=== PATIENT | female | born 1950 | race Caucasian/White ===

== ENCOUNTER 2019-05-24 07:00 | Emergency (ER) | payer OTHER, SELFPAY ==
[2019-05-24 07:02] VITALS: BP 151/86; PULSE 90; RESP 12; TEMP 36.6; O2SAT 96; BMI 30.5
--- NOTE | 2019-05-24 07:21 | DI.RAD.S_ITS ---
PROCEDURE: XR CHEST 1V INDICATIONS: chest pain TECHNIQUE: One view of the chest was acquired. COMPARISON: None. FINDINGS: Surgical changes and devices: None. Lungs and pleura: Lungs are clear. No pleural effusions or pneumothorax. Mediastinum: Mediastinal contours appear normal. Heart size is mildly prominent. Bones and chest wall: No suspicious bony lesions. Overlying soft tissues appear unremarkable. IMPRESSION: No acute pulmonary process. Dictated by: Elizabet Bales M.D. on 05/24/2019 at 8:00 Approved by: Elizabet Bales M.D. on 05/24/2019 at 8:25
--- NOTE | 2019-05-24 07:24 | ED_ITS ---
HPI - Arrhythmia/Palpitations General Chief Complaint: Arrhythmia/Palpitations Stated Complaint: HEART BEATING FAST Time Seen by Provider: 05/24/19 07:08 Source: patient Mode of arrival: Ambulatory Limitations: no limitations History of Present Illness HPI narrative: Patient is a 69-year-old female who presents with heart palpitations. She states she woke up feeling her heart beating fast and irregular. She tried bearing down to make it go away it lasted for maybe an hour she currently is in normal sinus rhythm in the emergency department. She is overall feeling better. She denies any chest pain dizziness or lightheadedness. She has no shortness of breath MD complaint: rapid heart beat and heart racing Duration: now resolved Severity: mild Context: occurred during rest Related Data Home Medications Medication Instructions Recorded Confirmed atenolol 25 mg tablet 25 mg PO DAILY 03/12/19 03/12/19 Previous Rx's Medication Instructions Recorded lamotrigine 200 mg tablet 200 mg PO DAILY #90 tab 03/12/19 trazodone 100 mg tablet 100 mg PO DAILY #90 tab 04/04/19 levothyroxine 75 mcg tablet 75 mcg PO DAILY #90 tab 05/09/19 venlafaxine 75 mg capsule,extended 75 mg PO TID #180 cap 05/09/19 release 24 hr Allergies Allergy/AdvReac Type Severity Reaction Status Date / Time duloxetine [From CYMBALTA] Allergy Unknown Verified 03/12/19 16:09 Review of Systems Review of Systems Narrative: GENERAL: Denies chills, fatigue, malaise, fever, sweats, travel HEENT: Denies sinus pain, ear pain, sore throat, difficulty swallowing, neck pain RESPIRATORY: Denies dyspnea, cough, wheezing, hemoptysis, sputum. CARDIOVASCULAR: See HPI GASTROINTESTINAL: Denies nausea, vomiting, abdominal pain, diarrhea, constipation, melena. : Denies dysuria, frequency, incontinence, hematuria, urinary retention, flank pain. MUSCULOSKELETAL: Denies weakness, joint pain, or bony pain SKIN: No rash, no erythema, no pruritus NEUROLOGIC: Denies weakness, dizziness, headache, numbness, change in speech, confusion PSYCHIATRIC: No concerning psychosocial issues. 12 point review of systems is negative except for those stated above and HPI Patient History Medical History Allergies (Chronic) Ankle pain (Chronic ~2017) Anxiety (Chronic) Arthritis (Chronic ~2007) Cervical spine disease (Chronic) Chicken pox (Resolved) Chronic back pain (Chronic ~1963) Depression (Chronic) Fibromyalgia (Chronic) Foot pain (Chronic) History of recurrent ear infection (Resolved) Hypertension (Chronic ~2018) Hypothyroidism (Chronic ~2000) Lumbar disc disease (Chronic) Measles (Resolved) Mumps (Resolved) Osteopenia (Chronic) Psoriasis (Chronic ~1979) Shoulder pain (Chronic) Skin problem (Chronic ~2017) Sleep apnea (Chronic) Vision disorder (Chronic) Surgical History Anesthesia (Resolved) History of breast surgery (Resolved ~1974) Family History Father History of heart disease Hypertension Mother Cancer History of heart disease Mental health problem Brother Atrial fibrillation Grandfather Stroke Social History Smoking Status: Former smoker Tobacco: How many years used: 15 alcohol intake: current (Occasional) alcohol intake frequency: holidays/special occasions only Substance Use Type: does not use Exam Initial Vital Signs Initial Vital Signs: Vital Signs Temperature 97.8 F 05/24/19 07:02 Pulse Rate 90 05/24/19 07:02 Respiratory Rate 12 05/24/19 07:02 Blood Pressure 151/86 H 05/24/19 07:02 Pulse Oximetry 96 05/24/19 07:02 GENERAL: Well-appearing, well-nourished and in no acute distress. HEENT: Head atraumatic,EOMI, pupils reactive, face symmetric, moist mucous membr anes CARDIOVASCULAR: Regular rate and rhythm without murmurs, rubs or gallops. RESPIRATORY: Breath sounds equal bilaterally, no wheezes rales or rhonchi. ABDOMEN: Soft, nontender. Normoactive bowel sounds all 4 quadrants. No guarding or rebound. EXTREMITIES: Normal range of motion, no clubbing or edema. Neurovascularly intact NEUROLOGICAL: Alert and oriented x4.Normal gait and speech. Cranial nerves II through XII grossly intact. SKIN: Warm, dry, no laceration, no petechiae, no rashes or lesions. Course Orders Ordered: ED Orders 05/24/19 EKG-12 Lead Routine 05/24/19 07:09 Complete Blood Count AUTO DIFF Stat Comprehensive Metabolic Panel Stat Lipase Stat Partial Thromboplastin Time Stat Prothrombin Time INR Stat Troponin & CK Cardiac Panel Stat 05/24/19 07:21 XR chest 1V Stat Vital Signs Vital signs: Vital Signs - 8 hr 05/24/19 07:02 05/24/19 07:50 05/24/19 08:18 Temperature 97.8 F Pulse Rate 90 77 76 Respiratory Rate 12 18 12 Blood Pressure 151/86 H 101/64 Blood Pressure [Right Arm] 110/71 Pulse Oximetry 96 94 96 MDM - Arrhythmia/Palpitations Lab Data Attestation: I reviewed the patient's lab results. Result diagrams: 05/24/19 07:09 05/24/19 07:09 Labs: Lab Results 05/24/19 05/24/19 05/24/19 Range/Units 07:09 07:09 07:09 WBC 7.8 (4.5-11.0) X10^3/uL RBC 4.88 (4.0-5.2) X10^6/uL Hgb 15.5 (12.0-16.0) g/dL Hct 46.1 H (36-46) % MCV 94.4 (80-100) fL MCH 31.8 (26-34) PG MCHC 33.7 (30-36) % RDW 13.0 (11.6-14.8) % Plt Count 384 (150-400) X10^3/uL Neut % (Auto) 50.6 (50-75) % Lymph % (Auto) 35.5 (25-40) % Webster % (Auto) 9.9 (3-14) % Eos % (Auto) 3.3 (2-4) % Baso % (Auto) 0.7 (0-2) % Neut # (Auto) 3900 (1610-1774) /uL Lymph # (Auto) 2800 (3252-6722) /uL Webster # (Auto) 800 (0-900) /uL Eos # (Auto) 300 (0-450) /uL Baso # (Auto) 100 (0-100) /uL PT 9.6 L (10.1-12.7) SECONDS INR 0.8 L (0.9-1.3) APTT 33 (26.4-36.2) SECONDS Sodium 139 (137-145) mmol/L Potassium 4.3 (3.4-5.1) mmol/L Chloride 106 (98-107) mmol/L Carbon Dioxide 24 (22-32) mmol/L BUN 17 (7-17) mg/dL Creatinine 0.60 (0.52-1.04) mg/dL Estimated GFR > 60.0 (>60) mL/min BUN/Creatinine Ratio 28.3 H (6-22) Glucose 115 H (80-110) mg/dL Calcium 9.6 (8.4-10.2) mg/dL Total Bilirubin 0.4 (0.2-1.3) mg/dL AST 25 (14-36) IU/L ALT 21 (<35) IU/L Alkaline Phosphatase 112 (38-126) U/L Total Creatine Kinase 57 (30-135) U/L CK-MB (CK-2) TNP CK-MB (CK-2) Rel Index TNP Troponin I 0.020 (0.01-0.034) ng/mL Total Protein 7.6 (6.3-8.2) g/dL Albumin 4.6 (3.5-5.0) g/dL Globulin 3.0 (1.7-4.1) g/dL Albumin/Globulin Ratio 1.5 (1.0-2.8) Lipase 205 (23-300) U/L Imaging Data Chest x-ray: Radiologist's impression: PROCEDURE: XR CHEST 1V INDICATIONS: chest pain TECHNIQUE: One view of the chest was acquired. COMPARISON: None. FINDINGS: Surgical changes and devices: None. Lungs and pleura: Lungs are clear. No pleural effusions or pneumothorax. Mediastinum: Mediastinal contours appear normal. Heart size is mildly prominent. Bones and chest wall: No suspicious bony lesions. Overlying soft tissues appear unremarkable. IMPRESSION: No acute pulmonary process. Dictated by: Elizabet Bales M.D. on 05/24/2019 at 8:00 Approved by: Elizabet Bales M.D. on 05/24/2019 at 8:25 ECG Data Attestation: I personally reviewed and interpreted this ECG as follows: Prior ECG tracings: available for review Interpretation: Normal sinus rhythm rate 87 p.r. interval 162 QRS [address] elevations depressions is T-wave inversions similar to previous EKG in 2016 [facility] Narrative Medical decision making narrative: The patient overall feeling much better Discharge Plan Departure Patient Disposition: Home Clinical Impression: Palpitations Discharge Date/Time: 05/24/19 08:18 Instructions: DI for Palpitations Activity Restrictions/Additional Instructions: *You have been diagnosed with heart palpitations *What to do: The I recommend you speak with her PCP in regards to getting a Holter monitor. This can monitor your heart rate in order to help figure out what is causing your palpitations *Continue to take medications as directed *Follow up with your primary care provider in 2-3 days *Return to ER if you should have increasing heart palpitations, dizziness, lightheadedness, chest pain, passing or any new, worsening or concerning symptoms Prescriptions: No Action trazodone 100 mg tablet 100 mg PO DAILY Qty: 90 RF: 1 levothyroxine [Synthroid] 75 mcg tablet 75 mcg PO DAILY Qty: 90 RF: 1 venlafaxine [Effexor XR] 75 mg capsule,extended release 24hr 75 mg PO TID Qty: 180 RF: 1 atenolol 25 mg tablet 25 mg PO DAILY RF: 0 lamotrigine 200 mg tablet 200 mg PO DAILY Qty: 90 RF: 1 Referrals: Connie Douglass DO [Primary Care Provider] -
[2019-05-24 07:28] LABS: Add Manual Diff / Slide Review NO; Basophils Absolute Auto 100 /uL (0-100); Basophils Percent Auto 0.7 % (0-2); Eosinophils Absolute Auto 300 /uL (0-450); Eosinophils Percent Auto 3.3 % (2-4); Hematocrit 46.1 % (36-46); Hemoglobin 15.5 g/dL (12.0-16.0); Lymphocytes Absolute Auto 2800 /uL (1100-4500); Lymphocytes Percent Auto 35.5 % (25-40); Mean Corpuscular HGB Conc 33.7 % (30-36); Mean Corpuscular Hemoglobin 31.8 PG (26-34); Mean Corpuscular Volume 94.4 fL (80-100); Monocytes Absolute Auto 800 /uL (0-900); Monocytes Percent Auto 9.9 % (3-14); Neutrophils Absolute Auto 3900 /uL (1500-7000); Neutrophils Percent Auto 50.6 % (50-75); Platelet Count 384 X10^3/uL (150-400); Red Blood Cell Count 4.88 X10^6/uL (4.0-5.2); White Blood Cell Count 7.8 X10^3/uL (4.5-11.0)
[2019-05-24 07:34] LABS: INR 0.8 (0.9-1.3); Prothrombin Time 9.6 SECONDS (10.1-12.7)
[2019-05-24 07:36] LABS: PTT Partial Thromboplastin Tim 33 SECONDS (26.4-36.2)
[2019-05-24 07:40] LABS: Alanine Aminotransferase 21 IU/L (<35); Albumin 4.6 g/dL (3.5-5.0); Albumin Globulin Ratio 1.5 (1.0-2.8); Alkaline Phosphatase 112 U/L (38-126); Aspartate Aminotransferase 25 IU/L (14-36); BUN Creatinine Ratio 28.3 (6-22); Bilirubin Total 0.4 mg/dL (0.2-1.3); Blood Urea Nitrogen 17 mg/dL (7-17); Calcium 9.6 mg/dL (8.4-10.2); Carbon Dioxide 24 mmol/L (22-32); Chloride 106 mmol/L (98-107); Creatine Kinase 57 U/L (30-135); Estimated Glomerular Filt Rate > 60.0 mL/min (>60); Glucose 115 mg/dL (80-110); HEMOLYSIS 17 (0-50); Lipase 205 U/L (23-300); Potassium 4.3 mmol/L (3.4-5.1); Sodium 139 mmol/L (137-145); Total Protein 7.6 g/dL (6.3-8.2)
[2019-05-24 07:50] VITALS: BP 110/71; PULSE 77; RESP 18; O2SAT 94
[2019-05-24 08:18] VITALS: BP 101/64; PULSE 76; RESP 12; O2SAT 96
== END 2019-05-24 08:18 | disposition home or self-care (01) ==
PROVIDERS: Emergency Provider Emergency Medicine; Family Provider Registered Nurse; PCP Family Medicine
DX: R00.2 Palpitations (principal); R07.9 Chest pain, unspecified; R00.0 Tachycardia, unspecified; I10 Essential (primary) hypertension
CPT/HCPCS: 36415; 71045; 80053; 82550; 83690; 84484; 85025; 85610; 85730; 93005; 93010; 99283; 99285

== ENCOUNTER → 2019-05-31 09:55 | Outpatient (CLI) | payer OTHER, SELFPAY ==
[2019-05-31 11:35] LABS: Hematocrit 44.3 % (36-46); Hemoglobin 14.9 g/dL (12.0-16.0); Mean Corpuscular HGB Conc 33.5 % (30-36); Mean Corpuscular Hemoglobin 31.7 PG (26-34); Mean Corpuscular Volume 94.4 fL (80-100); Platelet Count 400 X10^3/uL (150-400); Red Cell Distribution Width 12.8 % (11.6-14.8); White Blood Cell Count 5.8 X10^3/uL (4.5-11.0)
[2019-05-31 12:33] LABS: Neutrophils Absolute Manual 2610 /uL (3000-5900); RBC Morphology Normal Morphology; Total Cells Counted 100
[2019-05-31 12:48] LABS: Appearance Urine UA CLEAR; Bilirubin Urine UA NEGATIVE (NEGATIVE); Color Urine UA YELLOW; Glucose Urine UA NEGATIVE (Negative); Ketones Urine UA NEGATIVE (NEGATIVE); Leukocyte Esterase Urine UA NEGATIVE (NEGATIVE); Nitrite Urine UA NEGATIVE (Negative); Occult Blood Urine UA NEGATIVE (Negative); Protein Urine UA NEGATIVE (Negative); Specific Gravity Urine UA 1.015 (1.000-1.035); Urobilinogen Urine UA 0.2 E.U./dL (0.2)
[2019-05-31 12:50] LABS: Cholesterol 257 mg/dL (140-199); HDL Cholesterol 50 mg/dL (40-60); LDL Cholesterol Calculated 183 mg/dL (<100); Triglycerides 121 mg/dL (35-150)
[2019-05-31 13:02] LABS: Free T3, Triiodothyronine Free 3.74 pg/mL (2.77-5.27); Free T4, Direct Thyroxine 1.11 ng/dL (0.78-2.19)
[2019-05-31 13:16] LABS: Thyroid Stimulating Hormone 2.25 uIU/mL (0.47-4.68)
[2019-06-04 09:53] LABS: Lamotrigine Lamictal 2.9 mcg/mL (4.0-18.0)
== END ==
PROVIDERS: Family Provider Registered Nurse; PCP Family Medicine; Visit Provider Family Medicine
DX: F32.9 Major depressive disorder, single episode, unspecified (principal); G47.00 Insomnia, unspecified; I10 Essential (primary) hypertension; Z79.899 Other long term (current) drug therapy
CPT/HCPCS: 36415; 80061; 80175; 81003; 84439; 84443; 84481; 85025

== ENCOUNTER 2019-08-15 20:47 | Emergency (ER) | payer OTHER, SELFPAY ==
[2019-08-15 20:54] VITALS: BP 125/71; PULSE 77; RESP 16; TEMP 36.9; O2SAT 97
--- NOTE | 2019-08-15 20:59 | DI.RAD.S_ITS ---
PROCEDURE: XR WRIST RT MIN 3V INDICATIONS: fall TECHNIQUE: 4 views of the wrist were acquired. COMPARISON: None. FINDINGS: Bones: Subtle step-off at the distal radial metaphysis with increased transverse density is suspicious for impacted distal radius fracture. No suspicious bony lesions. Moderate to severe degenerative change most pronounced at the first CMC joint. Scaphoid view: Unremarkable. Soft tissues: No suspicious soft tissue calcifications. IMPRESSION: Suspect impacted distal radius fracture. Dictated by: Adi Pardo M.D. on 08/15/2019 at 21:58 Approved by: Adi Pardo M.D. on 08/15/2019 at 22:00
--- NOTE | 2019-08-15 21:26 | DI.CT.S_ITS ---
PROCEDURE: CT HEAD/BRAIN WO CON INDICATIONS: head injury TECHNIQUE: Noncontrast 4.5 mm thick angled axial sections acquired from the foramen magnum to the vertex, with coronal and sagittal reformats. For radiation dose reduction, the following was used: automated exposure control, adjustment of mA and/or kV according to patient size. COMPARISON: None. FINDINGS: Image quality: Excellent. CSF spaces: Basal cisterns are patent. No extra-axial fluid collections. The ventricles are symmetric in size and shape. Brain: No intracranial bleeds or masses. There is moderate cerebral volume loss for age, with resultant ventricular and sulcal prominence. There are moderate periventricular and deep white matter chronic small vessel ischemic changes. There is intracranial internal carotid artery atherosclerosis. Skull and face: Calvarium and visualized facial bones appear intact, without suspicious lesions. Asymmetric prominence of the left face adjacent to the left parotid gland likely related to asymmetric positioning within the scanner gantry. The right face adjacent to the parotid gland region is not symmetrically imaged on this examination. Recommend correlation for symmetry on physical examination. Sinuses: Likely small mucous retention cyst in the posterior aspect of the right maxillary sinus. Remainder of the paranasal sinuses appear clear. Mastoid air cells are well-aerated. IMPRESSION: CT head without acute intracranial abnormalities. No acute calvarial fractures. Age-related senescent changes and sequela of chronic small vessel ischemic disease. Likely small posterior right maxillary sinus mucus retention cyst. Dictated by: Hever Calvo M.D. on 08/15/2019 at 22:02 Approved by: Hever Calvo M.D. on 08/15/2019 at 22:06
[2019-08-15 21:52] VITALS: BP 127/61; PULSE 76; RESP 19; O2SAT 96
--- NOTE | 2019-08-15 22:23 | DI.CT.S_ITS ---
PROCEDURE: CT CERVICAL SPINE WO CON INDICATIONS: no neck pain, fall, hit head, +etoh TECHNIQUE: Noncontrast 3 mm thick sections acquired from the skull base to the T4 level. Sagittal and coronal reformats were then constructed. For radiation dose reduction, the following was used: automated exposure control, adjustment of mA and/or kV according to patient size. COMPARISON: [facility], CT, CT HEAD/BRAIN WO CON, 08/15/2019, 21:30. FINDINGS: Image quality: Excellent. Bones: No fractures or dislocations. Visualized superior ribs are intact. Trace anterolithesis of C3 on C4. Moderate disc space narrowing at C5-6, C6-7. Reversal of cervical curvature. Soft tissues: Prevertebral soft tissues are normal in thickness. No paravertebral hematomas. No apical pneumothoraces. IMPRESSION: Degenerative changes without visualized fracture. The above findings are concordant with preliminary report. Dictated by: Elizabet Bales M.D. on 08/16/2019 at 10:54 Approved by: Elizabet Bales M.D. on 08/16/2019 at 10:56
--- NOTE | 2019-08-15 22:30 | PC.NURSE ---
Cervical collar applied per Provider.
[2019-08-15 22:47] VITALS: BP 109/53; PULSE 78; RESP 16; O2SAT 98
--- NOTE | 2019-08-15 23:22 | ED.HEATRA ---
HPI - Head Injury General Chief complaint: Head Injury Stated complaint: fall, head injury, confused Time Seen by Provider: 08/15/19 23:22 Source: patient and family Mode of arrival: Wheelchair Limitations: no limitations History of Present Illness HPI Narrative: This is a 69-year-old female who comes to the emergency department gait of fall and head injury as well as right wrist pain. Patient states that she had some vodka earlier today and had some drinks. She states that she had her granddaughter come over to give her a box she went up stairs to get had a fall and then return her granddaughter who noted that she had a abrasion on her forehead or bruise and she had right wrist pain. Patient does not have any headache at this time. Denies any neck or back pain. She does have pain in her right wrist. She was ambulating in the emergency department. Patient states that she takes medication for mood and hypothyroid. Patient states she had a lump removed in her from her left breast that was benign and denies other surgeries. She states she is allergic to duloxetine or Cymbalta. She quit smoking in 40s, she states that she quit drinking for several years visited her brother recently had some RT knees and when she came back home bought a bottle of vodka. Patient states that she does not use illicit she lives on [facility] on her own. Related Data Home Medications Medication Instructions Recorded Confirmed atenolol 25 mg tablet 25 mg PO DAILY 03/12/19 06/19/19 Previous Rx's Medication Instructions Recorded lamotrigine 200 mg tablet 200 mg PO DAILY #90 tab 03/12/19 trazodone 100 mg tablet 100 mg PO DAILY #90 tab 04/04/19 levothyroxine 75 mcg tablet 75 mcg PO DAILY #90 tab 05/09/19 venlafaxine 75 mg capsule,extended 75 mg PO TID #180 cap 05/09/19 release 24 hr Allergies Allergy/AdvReac Type Severity Reaction Status Date / Time duloxetine [From CYMBALTA] AdvReac Unknown Anxiety Verified 08/15/19 20:57 Review of Systems Review of Systems ROS Unobtainable: All systems reviewed & are unremarkable except as noted in HPI and below Patient History Medical History Allergies (Chronic) Ankle pain (Chronic ~2017) Anxiety (Chronic) Arthritis (Chronic ~2007) Cervical spine disease (Chronic) Chicken pox (Resolved) Chronic back pain (Chronic ~1963) Depression (Chronic) Fibromyalgia (Chronic) Foot pain (Chronic) History of recurrent ear infection (Resolved) Hypertension (Chronic ~2018) Hypothyroidism (Chronic ~2000) Lumbar disc disease (Chronic) Measles (Resolved) Mumps (Resolved) Osteopenia (Chronic) Psoriasis (Chronic ~1979) Shoulder pain (Chronic) Skin problem (Chronic ~2017) Sleep apnea (Chronic) Vision disorder (Chronic) Surgical History Anesthesia (Resolved) History of breast surgery (Resolved ~1974) Social History Smoking Status: Former smoker Tobacco: How many years used: 15 alcohol intake: current (Occasional) Smoking Status: Former smoker alcohol intake frequency: a few times a month Substance Use Type: does not use Exam Narrative Exam Narrative: GEN: C-collar in ED. Patient appears in mild distress. HEAD: Patient has area of ecchymosis without hematoma on the right upper scalp into the hairline that is about 3 x 4 cm, no raccoon/Booth sign. NECK: Nontender, painless range of motion, trachea midline Positive Nexus criteria, there is no mid line tenderness, distracting injury, altered mental status, neuro deficit, positive recent EtOH. EYES: PERRLA, EOMI ENT: External inspection normal, trachea is midline, TM's are normal no hemotypanum, Nares are clear, no septal hematoma, no dental or oral injury, airway is normal and with normal occlusion, No bony tenderness, no facial droop. RESP: Chest is nontender and has symmetric movement, no ecchymosis, breath sounds are normal no crackles, wheezes or rales CVS: Heart sounds are normal, no murmur noted, No JVD. ABG/GI: Nontender, soft, normal bowel sounds, no distention, no organomegaly, pelvic rock is negative NEURO: Oriented AOx3, neuro is grossly intact, sensation and motor is normal all 4 extremities moving, cranial nerves II through XII are intact, GCS is 15, patient does appear mildly intoxicated PSYCH: Normal mood and affect SKIN: Intact, warm and dry, no crepitus and without decubitus BACK: No CVA tenderness, no vertebral tenderness, no step-off's, no crepitus EXT: Atraumatic, hips are nontender, no pedal edema, normal color and temperature, normal range of motion of extremities with normal tendon exam, 2+ pulses in all four extremities Initial Vital Signs Initial Vital Signs: Vital Signs Temperature 98.4 F 08/15/19 20:54 Pulse Rate 77 08/15/19 20:54 Respiratory Rate 16 08/15/19 20:54 Blood Pressure 125/71 08/15/19 20:54 Pulse Oximetry 97 08/15/19 20:54 Scores GCS Tj coma scale eye opening: Spontaneous Tj coma scale verbal response: Orientated Tj coma scale motor response: Obey commands [place] coma scale total score: 15 Course Orders Ordered: ED Orders 08/15/19 22:23 CT cervical spine wo con Stat Vital Signs Vital signs: Vital Signs - 8 hr 08/15/19 20:54 08/15/19 21:52 08/15/19 22:47 Temperature 98.4 F Pulse Rate 77 76 78 Respiratory Rate 16 19 16 Blood Pressure 125/71 Blood Pressure [Left Arm] 127/61 109/53 L Pulse Oximetry 97 96 98 MDM - Head Injury Lab Data Attestation: I reviewed the patient's lab results. Labs: Urine Dip Bedside Urine Glucose Negative Bedside Urine Bilirubin - Negative Bedside Urine Ketone - Negative Urine Specific [place] 1.010 Bedside Urine Occult Blood - Negative Bedside Urine pH 6.0 Bedside Urine Protein - Negative Bedside Urine Urobilinogen - Negative Bedside Urine Nitrite - Negative Bedside Urine Leukocytes + [address] scan - head: Radiologist's Impression: [place] [address] CT Scan Report Signed Patient: Subha Champagne RMR#: [id number] : 9Acct:[id number] Age/Sex: 69 / FDate of Service: 08/15/19 Loc: ED Accession Number: [id number] Procedure: CT head/brain wo con Ordering Provider: Kimber Vera D.O. PROCEDURE: CT HEAD/BRAIN WO CON INDICATIONS: head injury TECHNIQUE: Noncontrast 4.5 mm thick angled axial sections acquired from the foramen magnum to the vertex, with coronal and sagittal reformats. For radiation dose reduction, the following was used: automated exposure control, adjustment of mA and/or kV according to patient size. COMPARISON: None. FINDINGS: Image quality: Excellent. CSF spaces: Basal cisterns are patent. No extra-axial fluid collections. The ventricles are symmetric in size and shape. Brain: No intracranial bleeds or masses. There is moderate cerebral volume loss for age, with resultant ventricular and sulcal prominence. There are moderate periventricular and deep white matter chronic small vessel ischemic changes. There is intracranial internal carotid artery atherosclerosis. Skull and face: Calvarium and visualized facial bones appear intact, without suspicious lesions. Asymmetric prominence of the left face adjacent to the left parotid gland likely related to asymmetric positioning within the scanner gantry. The right face adjacent to the parotid gland region is not symmetrically imaged on this examination. Recommend correlation for symmetry on physical examination. Sinuses: Likely small mucous retention cyst in the posterior aspect of the right maxillary sinus. Remainder of the paranasal sinuses appear clear. Mastoid air cells are well-aerated. IMPRESSION: CT head without acute intracranial abnormalities. No acute calvarial fractures. Age-related senescent changes and sequela of chronic small vessel ischemic disease. Likely small posterior right maxillary sinus mucus retention cyst. Dictated by: Hever Calvo M.D. on 08/15/2019 at 22:02 Approved by: Hever Calvo M.D. on 08/15/2019 at 22:06 CT - cervical spine: Radiologist's Impression: No acute displaced fracture dislocation. Reversal of expected lordosis likely positional due to muscle spasm or secondary to chronic degenerative disease. Mild multilevel spinal canal stenosis secondary dorsal disc/osteophyte bulging. Prevertebral soft tissues are within normal limits. Marked osteoporosis which limits assessment of nondisplaced fractures. Right wrist x-ray: Radiologist's Impression: [address] [address] XRay Report Signed Patient: Subha Champagne RMR#: [id number] : 9Acct:[id number] Age/Sex: 69 / FDate of Service: 08/15/19 Loc: ED Accession Number: [id number] Procedure: XR wrist RT min 3V Ordering Provider: Kimber Vera D.O. PROCEDURE: XR WRIST RT MIN 3V INDICATIONS: fall TECHNIQUE: 4 views of the wrist were acquired. COMPARISON: None. FINDINGS: Bones: Subtle step-off at the distal radial metaphysis with increased transverse density is suspicious for impacted distal radius fracture. No suspicious bony lesions. Moderate to severe degenerative change most pronounced at the first CMC joint. Scaphoid view: Unremarkable. Soft tissues: No suspicious soft tissue calcifications. IMPRESSION: Suspect impacted distal radius fracture. Dictated by: Adi Pardo M.D. on 08/15/2019 at 21:58 Approved by: Adi Pardo M.D. on 08/15/2019 at 22:00 [facility] Narrative Medical decision making narrative: Patient is accompanied by her daughter. She states that she had alcoholic drinks today and this is likely the cause of her fall. She does not take any blood thinners. Patient head CT and C-spine are negative, she does have right wrist pain but has full for each of motion and her x-ray shows an impacted radial fracture. Patient was placed in a splint and referred to Orthopedic surgery and Dr. Neil. She lives on [facility] alone but her daughter and her going to stay in a hotel together this evening and her daughter is willing to observe her to make sure she is safe and without any other new changes. Discussed strict return precautions if she is having any new changes to mental status or other concerning symptoms. Daughter feels comfortable with this plan. Patient ambulated safely in department. Clinically sober. C-collar was cleared. Splint placed by nursing, NVI intact afterward on recheck. Discharge Plan Departure Patient Disposition: Home Clinical Impression: Fall Qualifiers: Encounter type: initial encounter Qualified Code(s): W19.XXXA - Unspecified fall, initial encounter Scalp bruising Qualifiers: Encounter type: initial encounter Qualified Code(s): S00.03XA - Contusion of scalp, initial encounter Fracture of right wrist Qualifiers: Encounter type: initial encounter Fracture type: closed Qualified Code(s): S62.101A - Fracture of unspecified carpal bone, right wrist, initial encounter for closed fracture Discharge Date/Time: 08/16/19 00:19 Instructions: DI for Wrist Fracture, DI for Closed Head Injury Activity Restrictions/Additional Instructions: Follow-up with Orthopedic surgery in the next 5-7 days. Call tomorrow for an appointment. You may take Tylenol and/or ibuprofen as needed for pain. I would recommend decreasing your alcohol intake Return to the ER for fevers greater 100.4 F, altered mental status, new confusion, sudden severe headaches, vision changes, new weakness, numbness, persistent vomiting, new neck or back pain, if patient is having new numbness, swelling of hand, loss of sensation or inability to move the fingers or other new or concerning symptoms. Splint Care: Keep splint clean and dry. Elevated affected body part to decrease swelling. OK to use ice pack on the affected body part. Use for 15-20 minutes each time, for 5-6x per day. If you develop worsening pain, numbness, tingling, discoloration of the affected body part, loosen the splint by loosening the CHEYANNE wrap, and either see your doctor for an urgent re-assessment, or return to the Emergency Department. Return to the Emergency Department for any new or worsening symptoms. Prescriptions: No Action trazodone 100 mg tablet 100 mg PO DAILY Qty: 90 RF: 1 levothyroxine [Synthroid] 75 mcg tablet 75 mcg PO DAILY Qty: 90 RF: 1 venlafaxine [Effexor XR] 75 mg capsule,extended release 24hr 75 mg PO TID Qty: 180 RF: 1 atenolol 25 mg tablet 25 mg PO DAILY RF: 0 lamotrigine 200 mg tablet 200 mg PO DAILY Qty: 90 RF: 1 Referrals: Mukesh Neil MD [Physician] - Connie Douglass DO [Primary Care Provider] -
--- NOTE | 2019-08-16 00:17 | PC.NURSE ---
0000 hours: Volar splint applied right wrist per Dr Vera. Pt education in re: CSM and capillary refil provided, Pt and daughter verbalize understanding of need to loosen splint as needed. Pt ambulates with steady gait across the [place].
== END 2019-08-16 00:19 | disposition home or self-care (01) ==
PROVIDERS: Emergency Provider Emergency Medicine; Family Provider Registered Nurse; PCP Family Medicine; Referring Provider Family Medicine
DX: S62.101A Fracture of unspecified carpal bone, right wrist, initial encounter for closed fracture (principal); S00.03XA Contusion of scalp, initial encounter; W19.XXXA Unspecified fall, initial encounter
CPT/HCPCS: 70450; 72125; 73110; 81003; 99284

== ENCOUNTER 2019-09-19 07:25 | Day surgery (SDC) | payer OTHER, SELFPAY ==
[2019-09-19] VITALS (7 sets, daily range): BP systolic 97–127; BP diastolic 40–75; PULSE 60–76; RESP 12–16; TEMP 36.7–36.8; O2SAT 92–96; BMI 27.8
--- NOTE | 2019-09-19 | PATH_ITS ---
[facility] Accession Number: [id number] . 01 Material submitted: . PART A: body - POLYP AT 70 PART B: colon - POLYP APPENDICEAL OPENING PART C: body - POLYP AT 15 . 02 Diagnosis: A. Colon at 70 cm, Polyp: Tubular adenoma. . B. Appendiceal Orifice, Polyp: Sessile serrated adenoma. . C. Colon at 15 cm, Polyp: Tubular adenoma. [facility]V 09/20/2019 1012 Local . 02 Electronically signed: . Godwin Kevin MD, PhD, Pathologist NPI- [id number] . 01 Gross description: . Part A: POLYP AT 70: Received in formalin is 1 fragment(s) of [place], soft tissue measuring 0.2 x 0.2 x 0.2 cm submitted entirely in 1 cassette(s) Part B: POLYP APPENDICEAL OPENING: Received in formalin are 2 fragment(s) of [place], soft tissue measuring 0.1 x 0.1 x 0.1 cm to 0.3 x 0.2 x 0.2 cm submitted entirely in 1 cassette(s) Part C: POLYP AT 15: Received in formalin is 1 fragment(s) of [place], soft tissue measuring 0.3 x 0.2 x 0.2 cm submitted entirely in 1 cassette(s) /[facility] 09/19/2019 1845 Local . 02 Pathologist provided ICD-10: D12.6, D12.1 . 02 CPT . 898925, 333641, [id number] Performed at: 01 [facility] [address], [place], [place] [id number] MD Alex Wolf MD Phone: [phone] Performed at: 02 [facility] [address] [place] [id number] MD Ria Allred MD Phone: [phone]
--- NOTE | 2019-09-19 08:37 | PM.HP.1 ---
History of Present Illness History of Present Illness Date Patient Seen: 09/19/19 Time Patient Seen: 08:37 Chief complaint: 07288 SCREENING COLONOSCOPY Narrative: The patient is a woman who has had polyps removed in the past. Her mother may have had rectal cancer. She is here for colonoscopy. Her last exam was 6 years ago. Patient History Medical History Allergies (Chronic) Ankle pain (Resolved ~2016) Anxiety (Resolved) Cervical spine disease (Chronic) Chronic back pain (Chronic ~1963) Depression (Resolved) Fibromyalgia (Chronic) Foot pain (Resolved) History of recurrent ear infection (Resolved) Hypertension (Chronic ~2017) Hypothyroidism (Chronic ~2000) Lumbar disc disease (Chronic) Osteopenia (Chronic) Psoriasis (Chronic ~1979) PTSD (post-traumatic stress disorder) (Chronic) Recurrent sinusitis (Resolved) Sleep apnea (Chronic) Vision disorder (Chronic) Surgical History Anesthesia (Resolved) History of breast surgery (Resolved ~1974) Family & Social History Family History Father History of heart disease Hypertension Mother Cancer History of heart disease Mental health problem Brother Atrial fibrillation Grandfather Stroke Social History: household members none Tobacco & Substance use: Smoking Status Former smoker alcohol intake current alcohol intake frequency a few times a month Substance Use Type does not use Meds Home Medications and Allergies Home Medications Medication Instructions Recorded Confirmed Type lamotrigine 200 mg tablet 200 mg PO DAILY #90 tab 03/12/19 09/19/19 Rx trazodone 100 mg tablet 100 mg PO DAILY #90 tab 04/04/19 09/19/19 Rx levothyroxine 75 mcg tablet 75 mcg PO DAILY #90 tab 05/09/19 09/19/19 Rx fluoxetine 10 mg capsule 10 mg PO BID cap 09/16/19 09/19/19 History modafinil 100 mg tablet 100 mg PO DAILY 09/16/19 09/19/19 History Allergies Allergy/AdvReac Type Severity Reaction Status Date / Time latex AdvReac Mild Verified 09/19/19 07:47 duloxetine [From CYMBALTA] AdvReac Unknown Anxiety Verified 09/16/19 13:43 Review of Systems Review of Systems ROS: Yes All systems reviewed with the patient and are negative except as otherwise documented Respiratory Comments: Some intermittent shortness of breath Gastrointestinal Comments: Reflux Endocrine Comments: Hypothyroid on medication Exam Vital Signs (past 8 hours): - 09/19/19 08:03 Temperature 98.0 F Pulse Rate 76 Respiratory Rate 16 Blood Pressure 127/75 Pulse Oximetry 94 Oxygen Delivery Method Room Air Narrative Exam Narrative: Pleasant cooperative patient no apparent distress. Lungs are clear to auscultation. No rales or rhonchi. Heart regular rate and rhythm no murmur gallop. Abdomen is soft nontender without mass. No obvious hernias. Patient is alert and oriented x3. Assessment & Plan Assessment & Plan narrative: The patient for a screening colonoscopy. I have discussed the procedure with them. Risks of bleeding, perforation which would necessitate major operation, failure to find remove all lesions, the potential tattoo were all discussed. All questions were answered. They wished to proceed.
--- NOTE | 2019-09-19 08:39 | PM.PREOP ---
Pre-operative Note Interval Note History & Physical reviewed/Exam performed by Physician: Yes Changes to H&P: No ASA Class (for procedural sedation): II
[2019-09-19] MEDS: SODIUM CHLORIDE 0.9% 1,000 ML 84 ML IV (08:42)
[2019-09-19] MEDS: MIDAZOLAM 5 MG/5 ML VIAL IV (08:45)
[2019-09-19] MEDS: fentaNYL 250 MCG/5 ML INJ IV (08:46)
--- NOTE | 2019-09-19 09:42 | PM.OP.ENDO ---
Operative Date/Time/Diagnoses Date of procedure: 09/19/19 Time of procedure: 09:21 Pre-op diagnosis: Screening exam. Last exam 6 years ago. Personal history of polyps. Mother may have had rectal cancer. Post-op diagnosis: same (Polyps. Sigmoid diverticulosis.) Procedure & Clinicians Study performed: Colonoscopy with cold biopsy Same procedure as scheduled: Yes Indications: Screening Surgeon: Julian Bruno Procedure Notes SCOAP/Timeout: Performed Procedure in detail: The patient was placed in the left lateral decubitus position and underwent IV sedation directed by the surgeon consisting of fentanyl and Versed. Digital exam was normal. The scope was inserted and advanced through the rectum into the sigmoid, descending, transverse, and ascending colon. I removed [address] in at 70 cm from the anal verge. The patient was noted to have extensive sigmoid diverticulosis. A stiffener was inserted pressure had to be applied to make our way into the cecum.. The cecum was reached identified by the ileocecal valve and the appendiceal opening. Near the appendiceal opening there appeared to be a slight irregularity of the mucosa. It may just be a normal variant so I biopsied the area but did not attempt to remove all of this tissue.. The scope was gradually brought out. An additional Polyps were found at 15 cm from the anal verge. The scope ultimately was retroflexed in the rectum. The appearance was normal. The scope was removed and the patient tolerated the procedure well. The prep was very good. Sedation minutes: 32 Findings: diverticulosis (Sigmoid) and polyp Specimen(s): other (Polyps and biopsy near the appendiceal opening) Post-procedure Recommendations: Colonscopy in 5 years (Sooner if the irregularity at the appendiceal opening is indeed an adenoma.) Follow up: as needed Disposition: PACU
--- NOTE | 2019-09-19 10:33 | SUR.PHASEII ---
Assumed care when pt arrived to phase 2, VSS, belly soft and tolerated juice. Pt's son called, waited for him to arrive. Pt then dressed and left unit when ready and in stable condition.
== END 2019-09-19 10:25 | disposition home or self-care (01) ==
PROVIDERS: Family Provider Registered Nurse; PCP Internal Medicine; Referring Provider Specialist; Visit Provider Specialist
PROC: 0DJD8ZZ Inspection of Lower Intestinal Tract, Via Natural or Artificial Opening Endoscopic (ICD-10-PCS; CPT 45378; principal; 2019-09-19 08:45)
DX: Z12.11 Encounter for screening for malignant neoplasm of colon (principal); Z86.010 Personal history of colon polyps; K57.30 Diverticulosis of large intestine without perforation or abscess without bleeding; D12.6 Benign neoplasm of colon, unspecified; D12.1 Benign neoplasm of appendix
CPT/HCPCS: 45380; 99152; 99153; J2250; J3010

== ENCOUNTER 2019-11-11 11:56 | Emergency (ER) | payer OTHER, SELFPAY ==
[2019-11-11 12:04] VITALS: BP 153/67; PULSE 72; RESP 14; TEMP 36.8; O2SAT 98
--- NOTE | 2019-11-11 12:07 | DI.RAD.S_ITS ---
PROCEDURE: XR TOE RT MIN 2V INDICATIONS: pain after trauma TECHNIQUE: 3 views of the fifth toe(s) acquired. COMPARISON: None. FINDINGS: Bones: There slight cortical irregularity at the base of the proximal fifth phalanx. Soft tissues: No suspicious soft tissue densities. IMPRESSION: Nondisplaced irregularity at the base of the proximal fifth phalanx suggestive of fracture. Dictated by: Elizabet Bales M.D. on 11/11/2019 at 12:47 Approved by: Elizabet Bales M.D. on 11/11/2019 at 12:48
[2019-11-11 14:23] VITALS: PULSE 74; RESP 16; O2SAT 98
--- NOTE | 2019-11-11 15:19 | ED.LOWEXIN ---
HPI - Extremity Injury (Lower) <Olga Powers PA-C - Last Filed: 11/11/19 23:50> General Chief Complaint: Extremity Injury, Lower Stated Complaint: Broke pinky toe on Rt ft Time Seen by Provider: 11/11/19 15:16 Source: patient Mode of arrival: Ambulatory Limitations: no limitations History of Present Illness HPI Narrative: This is a well-appearing 69-year-old who presents to the emergency department with right pinky toe pain and some mild swelling and bruising, 2 nights ago she was exiting her reclining chair and the handle did not work quite properly, and she ended at twisting and she kind of went forward, causing immediate pain in her right pinky toe that has continued to hurt since that time. She has been taking naproxen, and her son who is an RN memo-taped it to her next toe. She did not have any prodrome, this was a mechanical fall and she denies dizziness, palpitations, numbness or tingling of the foot or toes, change in color of the toe or any other symptoms. MD complaint: foot injury Onset (ago): day(s) (2) Injury: Right: toes Type of Injury: blunt Place: home Severity: moderate Severity scale (1-10): 4 Relieving factors: NSAID and immobilization Exacerbating factors: weight bearing, movement and palpation Context: other (twisted and compressed with getting up from recliner) Associated symptoms: able to partially bear weight (2nd to pain) Other symptoms: none Treatments prior to arrival: splint (memo taping with padding between toes) Related Data Home Medications Medication Instructions Recorded Confirmed fluoxetine 10 mg capsule 10 mg PO BID cap 09/16/19 10/09/19 modafinil 100 mg tablet 100 mg PO DAILY 09/16/19 10/09/19 Previous Rx's Medication Instructions Recorded lamotrigine 200 mg tablet 200 mg PO DAILY #90 tab 03/12/19 trazodone 100 mg tablet 100 mg PO DAILY #90 tab 04/04/19 amoxicillin 875 mg-potassium 1 tab PO BID #20 tab 10/09/19 clavulanate 125 mg tablet levothyroxine 75 mcg tablet 75 mcg PO DAILY #90 tab 11/08/19 Allergies Allergy/AdvReac Type Severity Reaction Status Date / Time latex AdvReac Mild Verified 11/11/19 12:06 duloxetine [From CYMBALTA] AdvReac Unknown Anxiety Verified 11/11/19 12:06 Review of Systems <Olga Powers PA-C - Last Filed: 11/11/19 23:50> Review of Systems Narrative: GENERAL: Denies chills, fatigue, malaise, fever, sweats. HEENT: Denies sinus pain, ear pain, sore throat, difficulty swallowing, dizziness. RESPIRATORY: Denies dyspnea, cough, wheezing, hemoptysis, sputum. CARDIOVASCULAR: Denies chest pain, palpitations, orthopnea, edema, GASTROINTESTINAL: Denies nausea, vomiting, abdominal pain, diarrhea, constipation, melena. : Denies dysuria, frequency, incontinence, hematuria, urinary retention. MUSCULOSKELETAL: Positive for right pinky toe pain, mild swelling denies weakness, any other joint pain, or bony pain SKIN: Positive for mild bruising with blue discoloration of the top and outside of the foot and the right pinky toe, Denies rash, skin lesions, or other NEUROLOGIC: Denies weakness, headache, numbness, change in speech, confusion, seizures, incoordination. PSYCHIATRIC: No concerning psychosocial issues. 12 point review of systems is negative except for those stated above ROS Unobtainable: All systems reviewed & are unremarkable except as noted in HPI and below Patient History <Olga Powers PA-C - Last Filed: 11/11/19 23:50> Medical History Allergies (Chronic) Ankle pain (Resolved ~2016) Anxiety (Resolved) Cervical spine disease (Chronic) Chronic back pain (Chronic ~1963) Depression (Resolved) Fibromyalgia (Chronic) Foot pain (Resolved) History of recurrent ear infection (Resolved) Hypertension (Chronic ~2018) Hypothyroidism (Chronic ~2000) Lumbar disc disease (Chronic) Osteopenia (Chronic) Psoriasis (Chronic ~1979) PTSD (post-traumatic stress disorder) (Chronic) Recurrent sinusitis (Resolved) Sinusitis (Acute) Sleep apnea (Chronic) Vision disorder (Chronic) Surgical History Anesthesia (Resolved) History of breast surgery (Resolved ~1974) Family History Father History of heart disease Hypertension Mother Cancer History of heart disease Mental health problem Brother Atrial fibrillation Grandfather Stroke Social History household members: none Smoking Status: Former smoker Tobacco: How many years used: 15 alcohol intake: current Smoking Status: Former smoker alcohol intake frequency: a few times a month Substance Use Type: does not use Exam <Olga Powers PA-C - Last Filed: 11/11/19 23:50> Narrative Exam Narrative: GENERAL: 69 year old patient appears stated age. Well-nourished, well-developed patient, in mild distress. HEAD: Atraumatic. Normocephalic. EYES: Pupils equal round and reactive. Extraocular motions intact. No scleral icterus. No injection or drainage. ENT: Nose without bleeding, purulent drainage. Throat without erythema, tonsillar hypertrophy or exudate. Airway patent. NECK: Trachea midline. Non tender CARDIOVASCULAR: Regular rate and rhythm without murmurs, gallops, or rubs. RESPIRATORY: Clear to auscultation. Breath sounds equal bilaterally. No wheezes, rales, or rhonchi. GASTROINTESTINAL: Abdomen soft, non-tender, nondistended. EXTREMITIES: She has tenderness and pain with range of motion of her toes, normal range of motion at the ankle with normal strength, she is tender over the right 5th digit No edema, see skin. BACK: Nontender without deformity or crepitance. No flank tenderness. NEURO: AOx3. SKIN: , there is some mild bluish discoloration consistent with a contusion of the superior lateral portion of her right foot adjacent to her injured 5th toe, No rash or erythema of visible areas Initial Vital Signs Initial Vital Signs: Vital Signs Temperature 98.2 F 11/11/19 12:04 Pulse Rate 72 11/11/19 12:04 Respiratory Rate 14 11/11/19 12:04 Blood Pressure 153/67 H 11/11/19 12:04 Pulse Oximetry 98 11/11/19 12:04 <Mechelle Montoya MD - Last Filed: 11/12/19 07:35> Initial Vital Signs Initial Vital Signs: Vital Signs Temperature 98.2 F 11/11/19 12:04 Pulse Rate 72 11/11/19 12:04 Respiratory Rate 14 11/11/19 12:04 Blood Pressure 153/67 H 11/11/19 12:04 Pulse Oximetry 98 11/11/19 12:04 Course <Olga Powers PA-C - Last Filed: 11/11/19 23:50> Orders Ordered: ED Orders 11/11/19 12:07 XR toe RT min 2V Stat Vital Signs Vital signs: Vital Signs - 8 hr 11/11/19 15:53 Pulse Rate 76 Respiratory Rate 20 Blood Pressure [Left Arm] 131/69 Pulse Oximetry 100 <Mechelle Montoya MD - Last Filed: 11/12/19 07:35> Orders Ordered: ED Orders 11/11/19 12:07 XR toe RT min 2V Stat Vital Signs Vital signs: Vital Signs - 8 hr 11/11/19 15:53 Pulse Rate 76 Respiratory Rate 20 Blood Pressure [Left Arm] 131/69 Pulse Oximetry 100 MDM - Extremity Injury (Lower) <Olga Powers PA-C - Last Filed: 11/11/19 23:50> Differential Diagnosis Differential diagnosis: Likely fracture of toe Medical Records Attestation: I reviewed the patient's medical records. Imaging Data Extremity x-ray #1: Attestation: I personally reviewed and interpreted this imaging study as follows: Radiologist's Impression: [address] [address] XRay Report Signed Patient: Subha Champagne RMR#: [id number] : 9Acct:[id number] Age/Sex: 69 / FDate of Service: 11/11/19 Loc: ED Accession Number: [id number] Procedure: XR toe RT min 2V Ordering Provider: Mechelle Montoya MD PROCEDURE: XR TOE RT MIN 2V INDICATIONS: pain after trauma TECHNIQUE: 3 views of the fifth toe(s) acquired. COMPARISON: None. FINDINGS: Bones: There slight cortical irregularity at the base of the proximal fifth phalanx. Soft tissues: No suspicious soft tissue densities. IMPRESSION: Nondisplaced irregularity at the base of the proximal fifth phalanx suggestive of fracture. Dictated by: Elizabet Bales M.D. on 11/11/2019 at 12:47 Approved by: Elizabet Bales M.D. on 11/11/2019 at 12:48 MDM Narrative Medical decision making narrative: This is a well-appearing 69-year-old woman who presents with right foot 5th digit pain that has been present for 2 days with associated bruising, and mild swelling. Treatments prior to arrival included memo taping and naproxen. X-rays suggestive of a nondisplaced possible fracture of the proximal 5th phalanx. This does not warrant orthopedic consult, and I have advised her regarding continued memo taping, alternating Tylenol and NSAIDs for pain, and following up with her PCP. Because she has had significant pain and some difficulty with walking, I also provided an orthopedic shoe, as she has been wearing water socks slippers which have absolutely no support, because she says these are the only issues that will fit on her right now. Based on exam I have low suspicion for vascular compromise, or nerve damage. Patient was discharged and advised to follow-up with her PCP, all questions were answered emergency return precautions were provided. Discharge Plan Departure Patient Disposition: Home Clinical Impression: Fracture of toe of right foot Qualifiers: Encounter type: initial encounter Toe: lesser toe Fracture type: closed Phalanx: proximal Fracture alignment: nondisplaced Qualified Code(s): S92.514A - Nondisplaced fracture of proximal phalanx of right lesser toe(s), initial encounter for closed fracture Discharge Date/Time: 11/11/19 16:12 Instructions: DI for Fracture, How To Perform RICE (Rest, Ice, Compress, Elevate) Activity Restrictions/Additional Instructions: Thank you for letting us to be part of your care today. There is no evidence of an emergent or life threatening illness at this time, but follow up with your doctor in 1-2 days is recommended nonetheless to continue to rule out serious underlying causes of your symptoms. Please call the office for an appointment. Please return to the Emergency Department for any worsening or persistent symptoms. Please take medications as directed. The x-ray is suspicious for a possible fracture of your little toe, at the base of the bone that is closest to your foot. I recommend you use memo taping with the adjacent toe, rest ice, and compression in follow-up with your PCP. We have also provided a orthopedic shoe for you that may give you some additional support and reduce your pain with walking. I recommend that you use a cane as needed and take it very slowly and rest as much as possible. You can continue to use NSAIDs and Tylenol for pain. Prescriptions: No Action amoxicillin-pot clavulanate [Augmentin] 875-125 mg tablet 1 tab PO BID Qty: 20 RF: 0 trazodone 100 mg tablet 100 mg PO DAILY Qty: 90 RF: 1 levothyroxine [Synthroid] 75 mcg tablet 75 mcg PO DAILY Qty: 90 RF: 3 lamotrigine 200 mg tablet 200 mg PO DAILY Qty: 90 RF: 1 modafinil 100 mg tablet 100 mg PO DAILY RF: 0 fluoxetine 10 mg capsule 10 mg PO BID RF: 0 Referrals: Torrey Horowitz MD [Primary Care Provider] - <Mechelle Montoya MD - Last Filed: 11/12/19 07:35> Cosign ED Attending Cosignature Attestation: I was immediately available in the department for consultation throughout this patient's visit. I agree with documentation as above. Mechelle Montoya MD
[2019-11-11 15:53] VITALS: BP 131/69; PULSE 76; RESP 20; O2SAT 100
== END 2019-11-11 16:12 | disposition home or self-care (01) ==
PROVIDERS: Emergency Provider Student in an Organized Health Care Education/Training Program; Family Provider Registered Nurse; PCP Internal Medicine; Referring Provider Internal Medicine
DX: S92.514A Nondisplaced fracture of proximal phalanx of right lesser toe(s), initial encounter for closed fracture (principal); W22.03XA Walked into furniture, initial encounter
CPT/HCPCS: 73660; 99283

== ENCOUNTER → 2019-12-16 14:34 | Outpatient (CLI) | payer OTHER, SELFPAY ==
--- NOTE | 2019-12-16 | DI.MG.S_ITS ---
BILATERAL DIGITAL SCREENING MAMMOGRAM 3D/2D WITH CAD: 12/16/2019 CLINICAL: Routine screening. Comparison is made to exams dated: 05/02/2016 mammogram and 08/23/2011 mammogram - [facility]. The tissue of both breasts is heterogeneously dense. This may lower the sensitivity of mammography. Current study was also evaluated with a Computer Aided Detection (CAD) system. No significant masses, calcifications, or other findings are seen in either breast. There has been no significant interval change. IMPRESSION: NEGATIVE There is no mammographic evidence of malignancy. A 1 year screening mammogram is recommended. This exam was interpreted at Station ID: [id number]. NOTE: For mammograms, a report in lay terms will be sent to the patient. Approximately 15% of breast malignancies will not be visualized mammographically. In the management of a palpable breast mass, a negative mammogram must not discourage biopsy of a clinically suspicious lesion. Electronically Signed By: Adi be/guzman:12/16/2019 16:42:31 letter sent: Normal Exam ACR BI-RADS Category 1: Negative [id number]
== END ==
PROVIDERS: Family Provider Registered Nurse; PCP Internal Medicine; Referring Provider Internal Medicine; Visit Provider Internal Medicine
DX: Z12.31 Encounter for screening mammogram for malignant neoplasm of breast (principal)
CPT/HCPCS: 77063; 77067

== ENCOUNTER → 2020-02-19 15:03 | Outpatient (CLI) | payer OTHER, SELFPAY | PROVIDERS: Family Provider Registered Nurse; PCP Internal Medicine; Referring Provider Internal Medicine; Visit Provider Internal Medicine | DX: M81.0 Age-related osteoporosis without current pathological fracture (principal); Z78.0 Asymptomatic menopausal state; M84.44 Pathological fracture, hand and fingers; Z82.62 Family history of osteoporosis; Z87.891 Personal history of nicotine dependence | CPT/HCPCS: 77080 ==

== ENCOUNTER → 2020-03-09 13:37 | Outpatient (CLI) | payer OTHER, SELFPAY ==
[2020-03-09 14:09] LABS: Add Manual Diff / Slide Review NO; Basophils Absolute Auto 100 /uL (0-100); Basophils Percent Auto 1.2 % (0-2); Eosinophils Absolute Auto 100 /uL (0-450); Eosinophils Percent Auto 1.9 % (2-4); Hematocrit 41.1 % (36-46); Hemoglobin 13.8 g/dL (12.0-16.0); Lymphocytes Absolute Auto 1500 /uL (1100-4500); Lymphocytes Percent Auto 31.3 % (25-40); Mean Corpuscular HGB Conc 33.7 % (30-36); Mean Corpuscular Hemoglobin 31.6 PG (26-34); Mean Corpuscular Volume 93.7 fL (80-100); Monocytes Absolute Auto 500 /uL (0-900); Monocytes Percent Auto 9.8 % (3-14); Neutrophils Absolute Auto 2600 /uL (1500-7000); Neutrophils Percent Auto 55.8 % (50-75); Platelet Count 320 X10^3/uL (150-400); Red Blood Cell Count 4.39 X10^6/uL (4.0-5.2); Red Cell Distribution Width 12.9 % (11.6-14.8); White Blood Cell Count 4.7 X10^3/uL (4.5-11.0)
[2020-03-09 14:25] LABS: Alanine Aminotransferase 17 IU/L (<35); Albumin 4.5 g/dL (3.5-5.0); Albumin Globulin Ratio 1.6 (1.0-2.8); Alkaline Phosphatase 101 U/L (38-126); Aspartate Aminotransferase 26 IU/L (14-36); BUN Creatinine Ratio 14.1 (6-22); Bilirubin Total 0.4 mg/dL (0.2-1.3); Blood Urea Nitrogen 9 mg/dL (7-17); Calcium 9.5 mg/dL (8.4-10.2); Carbon Dioxide 27 mmol/L (22-32); Chloride 103 mmol/L (98-107); Cholesterol 209 mg/dL (140-199); Estimated Glomerular Filt Rate > 60.0 mL/min (>60); Globulin 2.8 g/dL (1.7-4.1); Glucose 103 mg/dL (80-110); HDL Cholesterol 49 mg/dL (40-60); HEMOLYSIS < 15 (0-50); LDL Cholesterol Calculated 125 mg/dL (<100); Potassium 4.3 mmol/L (3.4-5.1); Sodium 138 mmol/L (137-145); Total Protein 7.3 g/dL (6.3-8.2); Triglycerides 173 mg/dL (35-150)
[2020-03-09 14:42] LABS: Free T3, Triiodothyronine Free 4.09 pg/mL (2.77-5.27); Free T4, Direct Thyroxine 1.47 ng/dL (0.78-2.19)
[2020-03-09 14:56] LABS: Thyroid Stimulating Hormone 0.954 uIU/mL (0.47-4.68)
== END ==
PROVIDERS: Family Provider Registered Nurse; PCP Internal Medicine; Referring Provider Internal Medicine; Visit Provider Internal Medicine
DX: E03.9 Hypothyroidism, unspecified (principal); G89.29 Other chronic pain; I10 Essential (primary) hypertension; M54.9 Dorsalgia, unspecified; M85.80 Other specified disorders of bone density and structure, unspecified site
CPT/HCPCS: 36415; 80053; 80061; 84439; 84443; 84481; 85025

== ENCOUNTER 2020-03-29 09:21 | Emergency (ER) | payer OTHER, SELFPAY ==
[2020-03-29] VITALS (8 sets, daily range): BP systolic 130–197; BP diastolic 60–93; PULSE 71–86; RESP 15; TEMP 37.2; O2SAT 93–98; BMI 29.2
--- NOTE | 2020-03-29 09:33 | ED_ITS ---
HPI - Abdominal Pain General Chief Complaint: Abdominal Pain Stated Complaint: Really sharp pain ULQ around to back x3 days Time Seen by Provider: 03/29/20 09:22 History of Present Illness HPI narrative: 70-year-old female former smoker with a history of PTSD, sleep apnea and chronic pain presents with a chief complains of about 3 days of severe, sudden onset left flank pain that wraps around from her left posterior back to her left upper abdomen. She states it is significantly worse with a deep breath or moving. She denies any fever chills. She denies any history of the same. She denies any change in bowel habits such as constipation or diarrhea. She denies any dysuria, frequency, urgency or hematuria. She denies any history of injury or overuse. MD complaint: flank pain Onset (ago): day(s) Pain Consistency: constant Location: L flank Severity: severe Quality: stabbing and sharp Radiation: L flank Relieving factors: rest Exacerbating factors: movement Associated symptoms: denies other symptoms Related Data Home Medications Medication Instructions Recorded Confirmed bupropion HCl 300 mg 24 hr tablet, 300 mg PO DAILY tab 02/06/20 03/12/20 extended release fluticasone furoate 27.5 2 spray NASAL DAILY 03/12/20 03/12/20 mcg/actuation nasal spray,suspension Previous Rx's Medication Instructions Recorded lamotrigine 200 mg tablet 200 mg PO DAILY #90 tab 03/12/19 trazodone 100 mg tablet 100 mg PO DAILY #90 tab 04/04/19 levothyroxine 75 mcg tablet 75 mcg PO DAILY #90 tab 11/08/19 atenolol 25 mg tablet 25 mg PO DAILY #30 tab 02/06/20 amitriptyline 10 mg tablet 10 mg PO BEDTIME #30 tab 03/12/20 atenolol 50 mg tablet 50 mg PO DAILY #30 tab 03/12/20 azelastine 0.15 % (205.5 mcg) 2 spray NASAL DAILY #30 ml 03/12/20 nasal spray cyclobenzaprine 10 mg PO TID PRN #14 tab 03/29/20 ketorolac 10 mg PO Q6H PRN #14 tab 03/29/20 lidocaine [Lidoderm] 1 patch TOP DAILY #15 each 03/29/20 Allergies Allergy/AdvReac Type Severity Reaction Status Date / Time latex AdvReac Mild Verified 03/29/20 09:33 duloxetine [From CYMBALTA] AdvReac Unknown Anxiety Verified 03/29/20 09:33 Review of Systems Constitutional Constitutional: Denies chills, Denies fatigue, Denies fever(s), Denies frequent falls, Denies lethargy and Denies weakness Eyes Eyes: Denies change in vision, Denies eye discharge, Denies irritation and Denies loss of vision ENT Ears, Nose, Mouth, and Throat: Denies change in voice, Denies dizziness, Denies neck pain, Denies sore throat and Denies throat swelling Cardiovascular Cardiovascular: Denies chest pain, Denies irregular heart rhythm, Denies lightheadedness, Denies palpitations, Denies dyspnea, Denies dyspnea on exertion and Denies orthopnea Respiratory Respiratory: Denies cough, Denies dyspnea, Denies dyspnea on exertion and Denies wheezing Gastrointestinal Gastrointestinal: Denies abdominal pain, Denies change in bowel habits, Denies diarrhea, Denies nausea and Denies vomiting Musculoskeletal Musculoskeletal: Denies neck pain and Denies numbness Integumentary/Breasts Skin/Breast: Denies pruritus, Denies erythema, Denies rash and Denies wounds Neurologic Neurologic: Denies behavioral changes, Denies confusion, Denies dizziness, Denies frequent falls, Denies loss of vision, Denies numbness and Denies weakness Psychiatric Psychiatric: Denies anxiety, Denies behavioral changes, Denies confusion, Denies depression, Denies homicidal ideation and Denies suicidal ideation Endocrine Endocrine: Denies fatigue, Denies flushing and Denies palpitations Hematologic/Lymphatic Hematologic/Lymphatic: Denies easy bruising Allergic/Immunologic Allergic/Immunologic: Denies urticaria, Denies throat swelling and Denies wheezing Patient History Medical History (Updated 03/29/20 @ 11:41 by Librado Daley DO) Allergies (Chronic) Ankle pain (Resolved ~2016) Anxiety (Resolved) Cervical spine disease (Chronic) Chronic back pain (Chronic ~1963) Depression (Resolved) Fibromyalgia (Chronic) Foot pain (Resolved) History of recurrent ear infection (Resolved) Hypertension (Chronic ~2017) Hypothyroidism (Chronic ~2000) Lumbar disc disease (Chronic) Osteopenia (Chronic) Psoriasis (Chronic ~1979) PTSD (post-traumatic stress disorder) (Chronic) Recurrent sinusitis (Resolved) Sinusitis (Acute) Sleep apnea (Chronic) Vision disorder (Chronic) Surgical History Anesthesia (Resolved) History of breast surgery (Resolved ~1974) Family History Father History of heart disease Hypertension Mother Cancer History of heart disease Mental health problem Brother Atrial fibrillation Grandfather Stroke Social History household members: none Smoking Status: Former smoker Tobacco: How many years used: 15 alcohol intake: current Smoking Status: Former smoker alcohol intake frequency: a few times a month Substance Use Type: does not use Exam Narrative Exam Narrative: GENERAL: [70] year old patient appears stated age. Well- nourished, well-developed patient, in mild distress. Obviously uncomfortable HEAD: Atraumatic. Normocephalic. EYES: Pupils equal round and reactive. Extraocular motions intact. No scleral icterus. No injection or drainage. ENT: Nose without bleeding, purulent drainage. Throat without erythema, tonsillar hypertrophy or exudate. Airway patent. NECK: Trachea midline. Non tender CARDIOVASCULAR: Regular rate and rhythm without murmurs, gallops, or rubs. RESPIRATORY: Clear to auscultation. Breath sounds equal bilaterally. No wheezes, rales, or rhonchi. GASTROINTESTINAL: Abdomen soft, non-tender, nondistended. EXTREMITIES: No edema or joint tenderness. BACK: Nontender without deformity or crepitance. Left flank tenderness. No erythematous or vesicular rash noted NEURO: AOx3. SKIN: No rash or erythema of visible areas Initial Vital Signs Initial Vital Signs: Vital Signs Temperature 99.0 F 03/29/20 09:30 Pulse Rate 86 03/29/20 09:30 Respiratory Rate 15 03/29/20 09:30 Blood Pressure 197/93 H 03/29/20 09:30 Pulse Oximetry 97 03/29/20 09:30 Course Course Course Narrative: After further consideration of the last few days she states that her pain very likely started soon after she was doing an exercise and stretching and feeling a pop in her left flank when she question she may have injured a rib. This conversation was had at the very end of the visit when I was discussing multiple, more significant conditions which had been ruled out. She has been given return precautions and had her questions answered to her apparent satisfaction. Orders Ordered: ED Orders 03/29/20 09:50 CT chest abd pel w con Stat 03/29/20 10:35 Complete Blood Count AUTO DIFF Stat Comprehensive Metabolic Panel Stat Discontinued Medications Sodium Chloride (Normal Saline 0.9%) 1,000 mls @ 1,000 mls/hr IV BOLUS ONE Stop: 03/29/20 10:26 Last Infusion: 03/29/20 12:10 Dose: 0 mls/hr Documented by: Admin: 03/29/20 11:07 Dose: 1,000 mls/hr Documented by: BENJAMÍN Ketorolac Tromethamine (Toradol) 15 mg IV NOW ONE Stop: 03/29/20 09:28 Last Admin: 03/29/20 11:07 Dose: 15 mg Documented by: BENJAMÍN Vital Signs Vital signs: Vital Signs - 8 hr 03/29/20 09:30 03/29/20 09:49 03/29/20 10:00 Temperature 99.0 F Pulse Rate 86 79 80 Respiratory Rate 15 Blood Pressure 197/93 H Pulse Oximetry 97 95 96 03/29/20 10:05 03/29/20 10:30 03/29/20 10:54 Temperature Pulse Rate 77 77 77 Respiratory Rate Blood Pressure 169/72 H 148/69 H Pulse Oximetry 98 97 95 03/29/20 11:00 03/29/20 11:30 Temperature Pulse Rate 75 71 Respiratory Rate Blood Pressure 140/60 130/62 Pulse Oximetry 93 94 MDM - Abdominal Pain Lab Data Result diagrams: 03/29/20 10:35 03/29/20 10:35 Labs: Lab Results 03/29/20 03/29/20 Range/Units 10:35 10:35 WBC 6.7 (4.5-11.0) X10^3/uL RBC 4.44 (4.0-5.2) X10^6/uL Hgb 14.1 (12.0-16.0) g/dL Hct 41.1 (36-46) % MCV 92.6 (80-100) fL MCH 31.8 (26-34) PG MCHC 34.4 (30-36) % RDW 13.2 (11.6-14.8) % Plt Count 261 (150-400) X10^3/uL Neut % (Auto) 76.6 H (50-75) % Lymph % (Auto) 12.0 L (25-40) % Nash % (Auto) 8.7 (3-14) % Eos % (Auto) 1.8 L (2-4) % Baso % (Auto) 0.9 (0-2) % Neut # (Auto) 5100 (0332-0907) /uL Lymph # (Auto) 800 L (8262-9857) /uL Nash # (Auto) 600 (0-900) /uL Eos # (Auto) 100 (0-450) /uL Baso # (Auto) 100 (0-100) /uL Sodium 139 (137-145) mmol/L Potassium 4.0 (3.4-5.1) mmol/L Chloride 106 (98-107) mmol/L Carbon Dioxide 27 (22-32) mmol/L BUN 10 (7-17) mg/dL Creatinine 0.62 (0.52-1.04) mg/dL Estimated GFR > 60.0 (>60) mL/min BUN/Creatinine Ratio 16.1 (6-22) Glucose 111 H (80-110) mg/dL Calcium 9.3 (8.4-10.2) mg/dL Total Bilirubin 0.6 (0.2-1.3) mg/dL AST 22 (14-36) IU/L ALT 17 (<35) IU/L Alkaline Phosphatase 98 (38-126) U/L Total Protein 7.6 (6.3-8.2) g/dL Albumin 4.3 (3.5-5.0) g/dL Globulin 3.3 (1.7-4.1) g/dL Albumin/Globulin Ratio 1.3 (1.0-2.8) Point of care testing: Urine Dip Bedside Urine Glucose Negative Bedside Urine Bilirubin - Negative Bedside Urine Ketone - Negative Urine Specific [place] 1.020 Bedside Urine Occult Blood - Negative Bedside Urine pH 5.5 Bedside Urine Protein +/- 15 Bedside Urine Nitrite - Negative Imaging Data CT scan - chest: Radiologist's Impression: Subha Champagne 70 F [address] [address] [address] Scan Report Signed Patient: Subha Champagne RMR#: [id number] : 9Acct:[id number] Age/Sex: 70 / FDate of Service: 03/29/20 Loc: ED Accession Number: [id number] Procedure: CT chest abd pel w con Ordering Provider: Librado Daley D.O. PROCEDURE: CT CHEST ABD PEL W CON INDICATIONS: severe left chest / abdomen pain TECHNIQUE: After the administration of intravenous contrast, 5 mm thick sections acquired from the lung apices to the symphysis. 5 mm coronal and sagittal reformats were performed, with additional 7 mm MIP reformats through the lungs. For radiation dose reduction, the following was used: automated exposure control, adjustment of mA and/or kV according to patient size. COMPARISON: None. FINDINGS: Image quality: Excellent. CHEST: Lungs and pleura: Ill-defined 4 mm pulmonary nodule, lingula, image 179/3. Ill -defined subpleural pulmonary nodule measuring 2 mm, right upper lobe, image 101/3. No acute airspace opacities. No pleural effusions or pneumothorax. Central and peripheral airways appear patent and normal in caliber. Mediastinum: Heart size is normal. No pericardial effusion. No mediastinal or hilar adenopathy by size criteria. Thoracic aorta and central pulmonary arteries are normal in size. Esophagus is normal in caliber. No hiatal hernia. Chest wall: No axillary or supraclavicular adenopathy by size criteria. Thyroid gland is unremarkable . ABDOMEN: Solid organs: Liver is normal in size and enhancement. Right lobe liver cyst near the dome of the liver measuring approximately 3.7 cm. No solid liver masses. Gallbladder is unremarkable . Biliary system is non dilated. Pancreas enhances normally. Spleen is normal in size and enhancement. No adrenal nodules. Kidneys demonstrate normal size and enhancement, without hydronephrosis. Peritoneum and bowel: Bowel loops demonstrate normal wall thickness and caliber. No free fluid or air. Mobile cecum with moderately large fecal debris. No bowel wall thickening. Sigmoid diverticulosis without evidence of diverticulitis. Nodes and vessels: No retroperitoneal or mesenteric adenopathy by size crite maico. Aorta and inferior vena cava are normal in size. Miscellaneous: No ventral hernias. PELVIS: Genitourinary: Bladder wall thickness is normal. Miscellaneous: No inguinal hernias or adenopathy. Bones: No suspicious bony lesions. No vertebral body compression fractures. IMPRESSION: 1. No evidence of acute process in the chest, abdomen, and pelvis. 2. Incidental note made of mobile cecum with moderately large fecal debris. 3. Sigmoid diverticulosis without evidence of diverticulitis. Dictated by: Gaudencio Jordan M.D. on 03/29/2020 at 9:59 Approved by: Gaudencio Jordan M.D. on 03/29/2020 at 10:08 [facility] Narrative Medical decision making narrative: Multiple etiologies for patient's symptoms considered including: [Pneumothorax versus pneumonia versus musculoskeletal injury versus kidney stone versus pyelonephritis versus other] Patient's symptoms improved over duration of stay with above-stated therapies. Findings and discharge diagnosis discussed with patient/family followed by verbalization of understanding Return precautions discussed with patient/family whom verbalize understanding. Discharge Plan Departure Patient Disposition: Home Clinical Impression: Acute flank pain Discharge Date/Time: 03/29/20 12:05 Instructions: DI for Flank Pain Activity Restrictions/Additional Instructions: *You have been diagnosed with [acute left flank pain, labs and pictures are very reassuring. This is likely musculoskeletal problem] *What to do: *Take medications as directed: Prescriptions electronically transmitted to [facility] at your request *Follow up with your primary care provider in 2-3 days, call for an appointment. Let them know you were seen in the Emergency Department and that we ask that you be seen in follow up *Return to ER if you should have any new, worsening or concerning symptoms Prescriptions: New lidocaine [Lidoderm] 5 % adhesive patch,medicated 1 patch TOP DAILY Qty: 15 RF: 0 cyclobenzaprine 10 mg tablet 10 mg PO TID PRN (Reason: muscle spasm) Qty: 14 RF: 0 ketorolac 10 mg tablet 10 mg PO Q6H PRN (Reason: pain) Qty: 14 RF: 0 No Action trazodone 100 mg tablet 100 mg PO DAILY Qty: 90 RF: 1 levothyroxine [Synthroid] 75 mcg tablet 75 mcg PO DAILY Qty: 90 RF: 3 lamotrigine 200 mg tablet 200 mg PO DAILY Qty: 90 RF: 1 bupropion HCl 300 mg tablet extended release 24 hr 300 mg PO DAILY RF: 0 atenolol 25 mg tablet 25 mg PO DAILY Qty: 30 RF: 3 fluticasone furoate 27.5 mcg/actuation spray,suspension 2 spray NASAL DAILY RF: 0 azelastine 0.15 % (205.5 mcg) spray,non-aerosol 2 spray NASAL DAILY Qty: 30 RF: 2 atenolol 50 mg tablet 50 mg PO DAILY Qty: 30 RF: 8 amitriptyline 10 mg tablet 10 mg PO BEDTIME Qty: 30 RF: 3 Referrals: Torrey Horowitz MD [Primary Care Provider] -
--- NOTE | 2020-03-29 09:50 | DI.CT.S_ITS ---
PROCEDURE: CT CHEST ABD PEL W CON INDICATIONS: severe left chest / abdomen pain TECHNIQUE: After the administration of intravenous contrast, 5 mm thick sections acquired from the lung apices to the symphysis. 5 mm coronal and sagittal reformats were performed, with additional 7 mm MIP reformats through the lungs. For radiation dose reduction, the following was used: automated exposure control, adjustment of mA and/or kV according to patient size. COMPARISON: None. FINDINGS: Image quality: Excellent. CHEST: Lungs and pleura: Ill-defined 4 mm pulmonary nodule, lingula, image 179/3. Ill-defined subpleural pulmonary nodule measuring 2 mm, right upper lobe, image 101/3. No acute airspace opacities. No pleural effusions or pneumothorax. Central and peripheral airways appear patent and normal in caliber. Mediastinum: Heart size is normal. No pericardial effusion. No mediastinal or hilar adenopathy by size criteria. Thoracic aorta and central pulmonary arteries are normal in size. Esophagus is normal in caliber. No hiatal hernia. Chest wall: No axillary or supraclavicular adenopathy by size criteria. Thyroid gland is unremarkable . ABDOMEN: Solid organs: Liver is normal in size and enhancement. Right lobe liver cyst near the dome of the liver measuring approximately 3.7 cm. No solid liver masses. Gallbladder is unremarkable . Biliary system is non dilated. Pancreas enhances normally. Spleen is normal in size and enhancement. No adrenal nodules. Kidneys demonstrate normal size and enhancement, without hydronephrosis. Peritoneum and bowel: Bowel loops demonstrate normal wall thickness and caliber. No free fluid or air. Mobile cecum with moderately large fecal debris. No bowel wall thickening. Sigmoid diverticulosis without evidence of diverticulitis. Nodes and vessels: No retroperitoneal or mesenteric adenopathy by size criteria. Aorta and inferior vena cava are normal in size. Miscellaneous: No ventral hernias. PELVIS: Genitourinary: Bladder wall thickness is normal. Miscellaneous: No inguinal hernias or adenopathy. Bones: No suspicious bony lesions. No vertebral body compression fractures. IMPRESSION: 1. No evidence of acute process in the chest, abdomen, and pelvis. 2. Incidental note made of mobile cecum with moderately large fecal debris. 3. Sigmoid diverticulosis without evidence of diverticulitis. Dictated by: Gaudencio Jordan M.D. on 03/29/2020 at 9:59 Approved by: Gaudencio Jordan M.D. on 03/29/2020 at 10:08
[2020-03-29 10:45] LABS: Add Manual Diff / Slide Review NO; Basophils Absolute Auto 100 /uL (0-100); Basophils Percent Auto 0.9 % (0-2); Eosinophils Absolute Auto 100 /uL (0-450); Eosinophils Percent Auto 1.8 % (2-4); Hematocrit 41.1 % (36-46); Hemoglobin 14.1 g/dL (12.0-16.0); Lymphocytes Absolute Auto 800 /uL (1100-4500); Mean Corpuscular HGB Conc 34.4 % (30-36); Mean Corpuscular Hemoglobin 31.8 PG (26-34); Mean Corpuscular Volume 92.6 fL (80-100); Monocytes Absolute Auto 600 /uL (0-900); Monocytes Percent Auto 8.7 % (3-14); Neutrophils Absolute Auto 5100 /uL (1500-7000); Neutrophils Percent Auto 76.6 % (50-75); Platelet Count 261 X10^3/uL (150-400); Red Blood Cell Count 4.44 X10^6/uL (4.0-5.2); Red Cell Distribution Width 13.2 % (11.6-14.8); White Blood Cell Count 6.7 X10^3/uL (4.5-11.0)
[2020-03-29 10:55] LABS: Alanine Aminotransferase 17 IU/L (<35); Albumin 4.3 g/dL (3.5-5.0); Albumin Globulin Ratio 1.3 (1.0-2.8); Alkaline Phosphatase 98 U/L (38-126); Aspartate Aminotransferase 22 IU/L (14-36); BUN Creatinine Ratio 16.1 (6-22); Bilirubin Total 0.6 mg/dL (0.2-1.3); Blood Urea Nitrogen 10 mg/dL (7-17); Calcium 9.3 mg/dL (8.4-10.2); Carbon Dioxide 27 mmol/L (22-32); Chloride 106 mmol/L (98-107); Estimated Glomerular Filt Rate > 60.0 mL/min (>60); Globulin 3.3 g/dL (1.7-4.1); Glucose 111 mg/dL (80-110); HEMOLYSIS < 15 (0-50); Sodium 139 mmol/L (137-145); Total Protein 7.6 g/dL (6.3-8.2)
[2020-03-29] MEDS: SODIUM CHLORIDE 0.9% 1,000 ML 1000 ML IV (11:07)
[2020-03-29] MEDS: KETOROLAC 60 MG/2 ML VIAL 15 MG IV (11:07)
== END 2020-03-29 12:05 | disposition home or self-care (01) ==
PROVIDERS: Emergency Provider Emergency Medicine; Family Provider Registered Nurse; PCP Internal Medicine
DX: R10.12 Left upper quadrant pain (principal); R07.89 Other chest pain
CPT/HCPCS: 71260; 74177; 80053; 81003; 85025; 96361; 96374; 99283; 99284; J1885; Q9967

== ENCOUNTER → 2020-12-10 10:50 | Outpatient (CLI) | payer OTHER, SELFPAY ==
[2020-12-10 11:14] LABS: COVID19 -Nasal RAPID Negative (Negative)
== END ==
PROVIDERS: Family Provider Registered Nurse; PCP Internal Medicine; Visit Provider Specialist
DX: Z20.822 Contact with and (suspected) exposure to COVID-19 (principal)
CPT/HCPCS: 87635; C9803

== ENCOUNTER 2020-12-11 08:39 | Day surgery (SDC) | payer OTHER, SELFPAY ==
--- NOTE | 2020-12-11 | PATH_ITS ---
[facility] Accession Number: [id number] . 01 Material submitted: . PART A: colon - POLYP AT 40CM PART B: colon - POLYP ON THE LIP OF APPENDICEAL OPENING PART C: colon - POLYP AT 65CM . 02 Diagnosis: A. Polyp at 40 cm: Portions of hyperplastic polyp x2. . B. Polyp on the Lip of Appendiceal Opening: Portions of serrated lesion x2, favor sessile serrated adenoma. . C. Polyp at 65 cm, Biopsies: Portions of serrated lesion x2; cannot completely exclude sessile serrated adenoma. Superficial portion of colorectal mucosa x1 with no significant histomorphologic abnormality. [facility] 12/17/2020 1734 Local . 02 Electronically signed: . Ambar Wise MD, Pathologist NPI- [id number] . 01 Gross description: . Part A: POLYP AT 40CM: Received in formalin are 2 fragment(s) of [place], soft tissue measuring 0.3 x 0.2 x 0.2 cm to 0.2 x 0.2 x 0.2 cm submitted entirely in 1 cassette(s) Part B: POLYP ON THE LIP OF APPENDICEAL OPENING: Received in formalin are multiple fragment(s) of [place], soft tissue measuring 0.9 x 0.4 x 0.2 cm in aggregate submitted entirely in 1 cassette(s) Part C: POLYP AT 65CM: Received in formalin are 3 fragment(s) of [place], soft tissue measuring 0.2 x 0.2 x 0.2 cm to 0.2 x 0.2 x 0.1 cm submitted entirely in 1 cassette(s) /[facility] 12/13/2020 1512 Local . 02 Pathologist provided ICD-10: K63.5, D12.6 . 02 CPT . 245094, 279672, 041418 Performed at: 01 [facility] [address] [id number] MD Alex Wolf MD Phone: [phone] Performed at: 02 [facility] [address] [place], [place] [id number] MD Ria Allred MD Phone: [phone]
[2020-12-11 09:18] VITALS: BMI 27.6
[2020-12-11 09:42] VITALS: BP 162/74; PULSE 68; RESP 16; TEMP 36.3; O2SAT 99
[2020-12-11] MEDS: LACTATED RINGERS 1,000 ML 200 ML IV (09:45)
--- NOTE | 2020-12-11 10:47 | PM.HP.1 ---
History of Present Illness History of Present Illness Date Patient Seen: 12/11/20 Time Patient Seen: 10:48 Chief complaint: DX COLONOSCOPY Narrative: Patient is a woman who had an adenoma on her ileocecal valve. This was is a biopsied because it was felt to possibly be a normal variant. She has no here for a follow-up exam and to remove any residual that might be present there her last colonoscopy was done in 2019. Patient History Medical History Allergies Ankle pain (~2016) Anxiety Arthritis Cervical spine disease Chronic back pain (~1963) Depression Fibromyalgia Foot pain History of recurrent ear infection Hypertension (~2017) Hypothyroidism (~2000) Lumbar disc disease Osteopenia Psoriasis (~1979) PTSD (post-traumatic stress disorder) Recurrent sinusitis Sleep apnea Vision disorder Surgical History Anesthesia History of breast surgery (~1974) Family & Social History Family History Father History of heart disease Hypertension Diabetes mellitus Mother History of heart disease Mental health problem Colon cancer Brother Atrial fibrillation Grandfather Stroke Social History: household members none Tobacco & Substance use: Smoking Status Former smoker alcohol intake current alcohol intake frequency a few times a month Substance Use Type does not use Meds Home Medications and Allergies Home Medications Medication Instructions Recorded Confirmed Type atenolol 25 mg tablet 25 mg PO DAILY #30 tab 02/06/20 12/11/20 Rx azelastine 205.5 mcg (0.15 %) 2 spray NASAL DAILY #30 ml 03/12/20 12/11/20 Rx nasal spray cholecalciferol (vitamin D3) 125 125 mcg PO DAILY 04/30/20 12/11/20 History mcg (5,000 unit) capsule lamotrigine 150 mg tablet 150 mg PO DAILY tab 04/30/20 12/11/20 History levothyroxine 75 mcg tablet 75 mcg PO DAILY #90 tab 10/30/20 12/11/20 Rx trazodone 50 mg PO BEDTIME 12/11/20 12/11/20 History venlafaxine 150 mg PO DAILY 12/11/20 12/11/20 History Allergies Allergy/AdvReac Type Severity Reaction Status Date / Time latex AdvReac Mild Verified 11/05/20 10:23 duloxetine [From CYMBALTA] AdvReac Unknown Anxiety Verified 11/05/20 10:23 Review of Systems Review of Systems Narrative: She has no cough shortness of breath at this time. She has had them in the past. She has hypertension. No cardiac history. No black or bloody bowel movements. ROS: Yes All systems reviewed with the patient and are negative except as otherwise documented Exam Vital Signs (past 8 hours): - 12/11/20 09:42 Temperature 97.4 F L Pulse Rate 68 Respiratory Rate 16 Blood Pressure 162/74 H Pulse Oximetry 99 Oxygen Delivery Method Room Air Narrative Exam Narrative: Pleasant cooperative patient no apparent distress. Lungs are clear to auscultation. No rales or rhonchi. Heart regular rate and rhythm no murmur gallop. Abdomen is soft nontender without mass. No obvious hernias. Patient is alert and oriented x3. Assessment & Plan Assessment & Plan narrative: The patient for a screening colonoscopy. I have discussed the procedure with them. Risks of bleeding, perforation which would necessitate major operation, failure to find remove all lesions, the potential tattoo were all discussed. All questions were answered. They wished to proceed.
--- NOTE | 2020-12-11 10:49 | PM.PREOP ---
Pre-operative Note COVID-19 COVID-19 status: Negative Result date/Date tested (Pos, Neg/Pending): 12/10/20 Interval Note History & Physical reviewed/Exam performed by Physician: Yes Changes to H&P: No ASA Class (for procedural sedation): II
[2020-12-11] MEDS: fentaNYL 250 MCG/5 ML INJ IV (11:23)
[2020-12-11] MEDS: MIDAZOLAM 5 MG/5 ML VIAL IV (11:23)
--- NOTE | 2020-12-11 11:37 | PM.OP.ENDO ---
Operative Date/Time/Diagnoses Date of procedure: 12/11/20 Time of procedure: 11:38 Pre-op diagnosis: Polyp on the lip of the appendix for removal. Post-op diagnosis: same (Additional polyps found at 40 and 65 cm from the anal verge) Procedure & Clinicians Study performed: Colonoscopy with hot snare polypectomy and cold biopsy. Same procedure as scheduled: Yes Indications: Patient to at a biopsy of a lesion on her appendiceal lip that proved to be adenomatous. She is here for complete removal of the area. Surgeon: Julian Bruno Procedure Notes SCOAP/Timeout: Performed Procedure in detail: The patient was placed in the left lateral decubitus position and underwent IV sedation directed by the surgeon consisting of fentanyl and Versed. Digital exam was unremarkable. The scope was inserted and advanced through the rectum into the sigmoid, descending, transverse, and ascending colon. The patient had extensive sigmoid diverticulosis and at 45 cm from the anal verge I encountered a small polyp which I biopsied and removed. Patient was repositioned stiffener inserted and we made our way into the cecum.. The cecum was reached identified by the ileocecal valve and the appendiceal opening. On the lip of the appendix was a raised flat lesion which I snared in multiple pieces and appeared to be completely removed. I did not see evidence of it extending down into the lumen of the appendix. The scope was gradually brought out. An additional polyp was found at 65 cm from the anal verge. It was biopsied and removed. The scope ultimately was retroflexed in the rectum. The appearance was remarkable for internal hemorrhoids without ulceration.. The scope was removed and the patient tolerated the procedure well. Prep was very good. Scope withdrawal time: 9 minutes(10 total) Sedation minutes: 42 Findings: polyp (The lip of the appendix an at 45 and 65 cm from the anal verge) Specimen(s): other (Polyps) Complications: none Post-procedure Recommendations: Colonscopy in 3 years Follow up: as needed Disposition: PACU
[2020-12-11 11:41] VITALS: BP 119/63; PULSE 65; RESP 11; TEMP 36.3; O2SAT 95
[2020-12-11 11:46] VITALS: BP 110/54; PULSE 61; RESP 11; O2SAT 94
[2020-12-11 11:51] VITALS: BP 105/57; PULSE 60; RESP 11; O2SAT 95
[2020-12-11 11:57] VITALS: BP 117/57; PULSE 63; RESP 17; O2SAT 94
[2020-12-11 12:03] VITALS: BP 121/57; PULSE 61; RESP 16; TEMP 35.9; O2SAT 96
== END 2020-12-11 12:11 | disposition home or self-care (01) ==
PROVIDERS: Family Provider Registered Nurse; PCP Internal Medicine; Referring Provider Specialist; Visit Provider Specialist
PROC: 0DJD8ZZ Inspection of Lower Intestinal Tract, Via Natural or Artificial Opening Endoscopic (ICD-10-PCS; CPT 45378; principal; 2020-12-11 10:00)
DX: D12.1 Benign neoplasm of appendix (principal); D12.6 Benign neoplasm of colon, unspecified
CPT/HCPCS: 45385; 45380; 99152; 99153; J2250; J3010

== ENCOUNTER → 2021-08-24 11:01 | Outpatient (CLI) | payer OTHER, SELFPAY ==
[2021-08-24 13:09] LABS: Alanine Aminotransferase 18 IU/L (<35); Albumin 4.8 g/dL (3.5-5.0); Albumin Globulin Ratio 1.5 (1.0-2.8); Alkaline Phosphatase 109 U/L (38-126); Aspartate Aminotransferase 25 IU/L (14-36); BUN Creatinine Ratio 21.3 (6-22); Bilirubin Total 0.4 mg/dL (0.2-1.3); Blood Urea Nitrogen 16 mg/dL (7-17); Calcium 9.5 mg/dL (8.4-10.2); Carbon Dioxide 25 mmol/L (22-32); Chloride 102 mmol/L (98-107); Estimated Glomerular Filt Rate > 60.0 mL/min (>60); Globulin 3.2 g/dL (1.7-4.1); Glucose 102 mg/dL (80-110); HEMOLYSIS < 15 (0-50); Potassium 4.3 mmol/L (3.4-5.1); Sodium 137 mmol/L (137-145)
[2021-08-24 13:16] LABS: Free T4, Direct Thyroxine 1.37 ng/dL (0.78-2.19)
[2021-08-24 13:30] LABS: Thyroid Stimulating Hormone 1.51 uIU/mL (0.47-4.68)
== END ==
PROVIDERS: Family Provider Registered Nurse; PCP Internal Medicine; Referring Provider Internal Medicine; Visit Provider Internal Medicine
DX: E03.9 Hypothyroidism, unspecified (principal); I10 Essential (primary) hypertension
CPT/HCPCS: 36415; 80053; 84439; 84443

== ENCOUNTER → 2022-01-27 16:15 | Outpatient (CLI) | payer OTHER, SELFPAY ==
[2022-01-27 16:40] LABS: Add Manual Diff / Slide Review NO; Basophils Absolute Auto 100 /uL (0-100); Basophils Percent Auto 0.9 % (0-2); Eosinophils Absolute Auto 100 /uL (0-450); Eosinophils Percent Auto 1.8 % (2-4); Hematocrit 42.3 % (36-46); Hemoglobin 14.6 g/dL (12.0-16.0); Lymphocytes Absolute Auto 1600 /uL (1100-4500); Lymphocytes Percent Auto 26.3 % (25-40); Mean Corpuscular HGB Conc 34.5 % (30-36); Mean Corpuscular Hemoglobin 32.4 PG (26-34); Mean Corpuscular Volume 93.8 fL (80-100); Monocytes Absolute Auto 500 /uL (0-900); Monocytes Percent Auto 7.6 % (3-14); Neutrophils Absolute Auto 3900 /uL (1500-7000); Neutrophils Percent Auto 63.4 % (50-75); Platelet Count 312 X10^3/uL (150-400); Red Blood Cell Count 4.51 X10^6/uL (4.0-5.2); Red Cell Distribution Width 13.8 % (11.6-14.8); White Blood Cell Count 6.2 X10^3/uL (4.5-11.0)
[2022-01-27 16:55] LABS: Alanine Aminotransferase 21 IU/L (<35); Albumin 4.7 g/dL (3.5-5.0); Albumin Globulin Ratio 1.5 (1.0-2.8); Alkaline Phosphatase 92 U/L (38-126); Aspartate Aminotransferase 29 IU/L (14-36); BUN Creatinine Ratio 16.4 (6-22); Bilirubin Total 0.5 mg/dL (0.2-1.3); Blood Urea Nitrogen 12 mg/dL (7-17); C-Reactive Protein Quant 0.7 mg/dL (<1.0); Calcium 8.8 mg/dL (8.4-10.2); Carbon Dioxide 23 mmol/L (22-32); Chloride 104 mmol/L (98-107); Estimated Glomerular Filt Rate > 60 mL/min (>60); Globulin 3.1 g/dL (1.7-4.1); Glucose 95 mg/dL (80-110); HEMOLYSIS < 15 (0-50); Potassium 4.2 mmol/L (3.4-5.1); Sodium 137 mmol/L (137-145); Total Protein 7.8 g/dL (6.3-8.2)
[2022-01-27 17:13] LABS: Free T4, Direct Thyroxine 1.12 ng/dL (0.78-2.19)
[2022-01-27 17:25] LABS: Erythrocyte Sedimentation Rate 6 MM/HR (0-20)
[2022-01-27 17:27] LABS: Thyroid Stimulating Hormone 1.16 uIU/mL (0.47-4.68)
== END ==
PROVIDERS: Family Provider Registered Nurse; PCP Internal Medicine; Referring Provider Internal Medicine; Visit Provider Internal Medicine
DX: E03.9 Hypothyroidism, unspecified (principal); R10.31 Right lower quadrant pain
CPT/HCPCS: 36415; 80053; 84439; 84443; 85025; 85651; 86140

== ENCOUNTER → 2022-05-22 14:37 | Outpatient (CLI) | payer OTHER, SELFPAY ==
--- NOTE | 2022-05-22 14:40 | DI.RAD.S_ITS ---
PROCEDURE: XR CHEST 2V INDICATIONS: Right-sided rib pain status post fall about 1 week ago TECHNIQUE: 2 views of the chest were acquired. COMPARISON: [facility], CR, XR CHEST 1V, 05/24/2019, 7:37. FINDINGS: Surgical changes and devices: None. Lungs and pleura: Lungs are clear. No pleural effusions or pneumothorax. Mediastinum: Mediastinal contours are normal. Heart size is normal. Bones and chest wall: No suspicious bony abnormalities. Soft tissues appear unremarkable. IMPRESSION: Normal two view chest x-ray Approved by: Benji Bradley M.D. on 05/22/2022 at 15:19
== END ==
PROVIDERS: Family Provider Registered Nurse; PCP Internal Medicine; Referring Provider Physician Assistant; Visit Provider Physician Assistant
DX: R07.81 Pleurodynia (principal)
CPT/HCPCS: 71046

== ENCOUNTER → 2023-01-18 10:15 | Outpatient (CLI) | payer OTHER, SELFPAY ==
--- NOTE | 2023-01-18 10:16 | DI.MG.S_ITS ---
BILATERAL DIGITAL SCREENING MAMMOGRAM 3D/2D WITH CAD: 01/18/2023 CLINICAL: Routine screening. Family history of breast cancer. Comparison is made to exams dated: 12/16/2019 mammogram - [facility], 05/02/2016 mammogram, and 08/23/2011 mammogram - [facility]. Both breasts are heterogeneously dense, which may obscure small masses (category c / 51-75% glandular tissue). Current study was also evaluated with a Computer Aided Detection (CAD) system. No significant masses, calcifications, or other findings are seen in either breast. There has been no significant interval change. IMPRESSION: NEGATIVE There is no mammographic evidence of malignancy. A 1 year screening mammogram is recommended. Based on the Tyrer Cuzick model (a risk assessment model) the patient's lifetime risk is 4.5% and her 10 year risk is 3.6%. According to the ACR, ACS, and NCCN guidelines, an annual breast MRI exam along with mammogram is recommended if the patient's lifetime risk is 20% or greater. This exam was interpreted at Station ID: [id number]. NOTE: For mammograms, a report in lay terms will be sent to the patient. Approximately 15% of breast malignancies will not be visualized mammographically. In the management of a palpable breast mass, a negative mammogram must not discourage biopsy of a clinically suspicious lesion. Electronically Signed By: [place] stephen/guzman:01/18/2023 10:42:23 letter sent: Normal Exam ACR BI-RADS Category 1: Negative [id number]
== END ==
PROVIDERS: Family Provider Registered Nurse; PCP Internal Medicine; Referring Provider Internal Medicine; Visit Provider Internal Medicine
DX: Z12.31 Encounter for screening mammogram for malignant neoplasm of breast (principal); Z80.3 Family history of malignant neoplasm of breast
CPT/HCPCS: 77063; 77067

== ENCOUNTER → 2023-02-07 10:47 | Outpatient (CLI) | payer OTHER, SELFPAY ==
[2023-02-07 13:24] LABS: Alanine Aminotransferase 31 IU/L (<35); Albumin 4.2 g/dL (3.5-5.0); Albumin Globulin Ratio 1.4 (1.0-2.8); Alkaline Phosphatase 89 U/L (38-126); Aspartate Aminotransferase 36 IU/L (14-36); BUN Creatinine Ratio 13.9 (6-22); Bilirubin Total 0.5 mg/dL (0.2-1.3); Blood Urea Nitrogen 10 mg/dL (7-17); Carbon Dioxide 27 mmol/L (22-32); Chloride 101 mmol/L (98-107); Estimated Glomerular Filt Rate > 60 mL/min (>60); Glucose 94 mg/dL (80-110); HEMOLYSIS 17 (0-50); Potassium 4.3 mmol/L (3.4-5.1); Sodium 135 mmol/L (137-145); Total Protein 7.2 g/dL (6.3-8.2)
[2023-02-07 13:35] LABS: Free T4, Direct Thyroxine 1.16 ng/dL (0.78-2.19)
[2023-02-07 13:49] LABS: Thyroid Stimulating Hormone 3.56 uIU/mL (0.47-4.68)
== END ==
PROVIDERS: Family Provider Registered Nurse; PCP Internal Medicine; Referring Provider Internal Medicine; Visit Provider Internal Medicine
DX: E03.9 Hypothyroidism, unspecified (principal); I10 Essential (primary) hypertension
CPT/HCPCS: 36415; 80053; 84439; 84443

== ENCOUNTER 2023-09-18 13:32 | Emergency (ER) | payer OTHER, SELFPAY ==
[2023-09-18 13:40] VITALS: BP 198/84; PULSE 64; RESP 16; TEMP 36.5; O2SAT 98; BMI 27.2
--- NOTE | 2023-09-18 13:53 | DI.RAD.S_ITS ---
PROCEDURE: XR WRIST LT MIN 3V INDICATIONS: fall/injury/pain TECHNIQUE: 4 views of the wrist were acquired. COMPARISON: [facility], CR, XR HUMERUS LT 2V, 09/18/2023, 13:55. [facility], CR, XR WRIST RT MIN 3V, 08/15/2019, 21:18. FINDINGS: Bones: No fractures or dislocations. No suspicious bony lesions. Prominent 1st CMC arthritic change. Radiocarpal narrowing is present. Avulsion injury of indeterminate age of the ulna styloid. Soft tissues: No suspicious soft tissue calcifications. IMPRESSION: Arthritic changes as above. Avulsion injury of the ulna styloid of indeterminate age. Dictated by: Elizabet Bales M.D. on 09/18/2023 at 14:45 Approved by: Elizabet Bales M.D. on 09/18/2023 at 14:46
--- NOTE | 2023-09-18 13:54 | DI.RAD.S_ITS ---
PROCEDURE: XR ELBOW LT MIN 3V INDICATIONS: fall/injury/pain TECHNIQUE: 3 views of the elbow were acquired. COMPARISON: [facility], CR, XR HUMERUS LT 2V, 09/18/2023, 13:55. FINDINGS: Bones: Slight nondisplaced cortical irregularity of the proximal radial head. Soft tissues: Mild effusion. IMPRESSION: Mild effusion with slight proximal head cortical irregularity. Fracture cannot be excluded. Follow-up imaging in 7-10 days is recommended. Dictated by: Elizabet Bales M.D. on 09/18/2023 at 14:46 Approved by: Elizabet Bales M.D. on 09/18/2023 at 14:47
--- NOTE | 2023-09-18 13:54 | DI.RAD.S_ITS ---
PROCEDURE: XR HUMERUS LT 2V INDICATIONS: fall/injury/pain TECHNIQUE: 2 views of the humerus were acquired. COMPARISON: [facility], CR, XR WRIST LT MIN 3V, 09/18/2023, 13:55. [facility], CR, XR ELBOW LT MIN 3V, 09/18/2023, 13:55. FINDINGS: Bones: No fractures or dislocations. No suspicious bony lesions. Soft tissues: No suspicious soft tissue calcifications. IMPRESSION: No visualized acute fracture or dislocation. However, if clinical concern and/or pain persist, short interval imaging followup in 7-10 days is recommended, as occult injury cannot be definitively excluded. Dictated by: Elizabet Bales M.D. on 09/18/2023 at 14:46 Approved by: Elizabet Bales M.D. on 09/18/2023 at 14:46
--- NOTE | 2023-09-18 14:24 | ED_ITS ---
<Statement entered by Marcelo Pete MD - 09/19/23 07:48> I was available for consultation during this patient's time in the ER but not consulted. My review of this chart is my first interaction with this patient's presentation. I called and spoke with Subha on phone at 7:45AM this morning. She states she is having more pain in her elbow. I suspect she may have occult fracture in her elbow given her report and imaging findings and requested she return to the ER for splinting. She agrees to do so. She fully understands risks of not compliant with this. She states she will come in this morning. HPI - Fall General Chief Complaint: Fall Stated Complaint: fall, L arm injury Time Seen by Provider: 09/18/23 13:58 Source: patient Mode of arrival: Ambulatory History of Present Illness HPI Narrative: 73-year-old female with past medical history hypertension, hypothyroidism, osteopenia, psoriasis, fibromyalgia presents to the ED status post a mechanical fall sustained just prior to arrival. Patient states she was walking on a patch of grass did not note a spot of mud, she had a mechanical slip and fall striking her left elbow and arm on the concrete. Patient complains of left elbow pain, discomfort when extending her elbow. Denies numbness, tingling, weakness. No head strike and no loss of consciousness. Related Data Home Medications Medication Instructions Recorded Confirmed cholecalciferol (vitamin D3) 125 125 mcg PO DAILY 04/30/20 01/27/23 mcg (5,000 unit) capsule lamotrigine 150 mg tablet 150 mg PO DAILY 04/30/20 01/27/23 trazodone 100 mg tablet 25 mg PO BEDTIME 02/14/22 01/27/23 dextroamphetamine-amphetamine 15 15 mg PO DAILY 01/27/23 01/27/23 mg tablet (Adderall) venlafaxine 75 mg tablet,extended 75 mg PO DAILY 01/27/23 01/27/23 release 24 hr Previous Rx's Medication Instructions Recorded azelastine 205.5 mcg (0.15 %) 2 spray intranasal DAILY #30 mL 03/12/20 nasal spray atenolol 50 mg tablet 50 mg PO DAILY #90 tabs 03/01/23 levothyroxine 75 mcg tablet 75 mcg PO DAILY #90 tabs 03/01/23 (Synthroid) Allergies Allergy/AdvReac Type Severity Reaction Status Date / Time latex AdvReac Mild Verified 01/27/23 15:53 duloxetine [From CYMBALTA] AdvReac Unknown Anxiety Verified 01/27/23 15:53 Review of Systems Constitutional Constitutional: Denies chills, Denies fatigue, Denies fever(s), Denies frequent falls, Denies lethargy and Denies weakness Eyes Eyes: Denies change in vision, Denies eye discharge, Denies irritation and Denies loss of vision ENT Ears, Nose, Mouth, and Throat: Denies change in voice, Denies dizziness, Denies neck pain, Denies sore throat and Denies throat swelling Cardiovascular Cardiovascular: Denies chest pain, Denies irregular heart rhythm, Denies lightheadedness, Denies palpitations, Denies dyspnea, Denies dyspnea on exertion and Denies orthopnea Respiratory Respiratory: Denies cough, Denies dyspnea, Denies dyspnea on exertion and Denies wheezing Gastrointestinal Gastrointestinal: Denies abdominal pain, Denies change in bowel habits, Denies diarrhea, Denies nausea and Denies vomiting Musculoskeletal Musculoskeletal: Denies neck pain and Denies numbness Comments: Left elbow pain Integumentary/Breasts Skin/Breast: Denies pruritus, Denies erythema, Denies rash and Denies wounds Neurologic Neurologic: Denies behavioral changes, Denies confusion, Denies dizziness, Denies frequent falls, Denies loss of vision, Denies numbness and Denies weakness Psychiatric Psychiatric: Denies anxiety, Denies behavioral changes, Denies confusion, Denies depression, Denies homicidal ideation and Denies suicidal ideation Endocrine Endocrine: Denies fatigue, Denies flushing and Denies palpitations Hematologic/Lymphatic Hematologic/Lymphatic: Denies easy bruising Allergic/Immunologic Allergic/Immunologic: Denies urticaria, Denies throat swelling and Denies wheezing Patient History Medical History H/O adenomatous polyp of colon COVID-19 Arthritis PTSD (post-traumatic stress disorder) Vision disorder Psoriasis (~1979) Sleep apnea Allergies Depression Anxiety Osteopenia Lumbar disc disease Foot pain Fibromyalgia Chronic back pain (~1963) Cervical spine disease Ankle pain (~2016) Recurrent sinusitis History of recurrent ear infection Hypothyroidism (~2000) Hypertension (~2018) Surgical History Anesthesia History of breast surgery (~1974) Family History Father History of heart disease Hypertension Diabetes mellitus Mother History of heart disease Mental health problem Colon cancer Brother Atrial fibrillation Grandfather Stroke Social History marital status: unknown household members: none occupational status: previously employed Smoking Status: Former smoker Tobacco: How many years used: 15 alcohol intake: current substance use type: does not use Smoking Status: Former smoker alcohol intake frequency: a few times a month Substance Use Type: does not use Exam Narrative Exam Narrative: Const General:?cooperative, healthy appearing and comfortable HENMT Head:?normal to inspection Ears:?hearing grossly normal bilaterally Nose:?external nose normal Face and sinus:?normal facial exam and sinuses nontender Mouth:?oral mucosae normal Throat:?posterior oropharynx normal Eyes General:?appearance normal, both eyes and all related structures Neck Neck:?normal visual inspection and no lymphadenopathy noted Resp Effort & Inspection:?normal respiratory effort Auscultation:?clear to auscultation bilaterally Cardio Rate:?regular rate Rhythm:?regular rhythm Musculoskeletal There is some tenderness to palpation of the left elbow. No bruising, swelling, deformities noted on exam. Neurovascularly intact. Patient is holding her arm in flexion. Neuro General:?patient alert, patient awake and patient oriented x3 Initial Vital Signs Initial Vital Signs: Vital Signs Temperature 97.7 F 09/18/23 13:40 Pulse Rate 64 09/18/23 13:40 Respiratory Rate 16 09/18/23 13:40 Blood Pressure 198/84 H 09/18/23 13:40 Pulse Oximetry 98 09/18/23 13:40 Oxygen Delivery Method Room Air 09/18/23 13:40 Course Orders Ordered: ED Orders 09/18/23 13:53 XR wrist LT min 3V Stat 09/18/23 13:54 XR elbow LT min 3V Stat XR humerus LT 2V Stat 09/18/23 14:45 CT head/brain wo con Stat 09/18/23 14:46 CT cervical spine wo con Stat CT thoracic spine wo con Stat Discontinued Medications Ketorolac Tromethamine (Ketorolac 30 Mg/Ml Vial) 30 mg IM NOW ONE Stop: 09/18/23 14:34 Last Admin: 09/18/23 14:59 Dose: 30 mg Documented By: DAQUAN Vital Signs Vital signs: Vital Signs - 8 hr 09/18/23 13:40 09/18/23 15:00 09/18/23 15:48 Temperature 97.7 F 98.2 F 97.8 F Pulse Rate 64 68 65 Respiratory Rate 16 20 18 Blood Pressure 198/84 H 157/81 H 142/65 H Pulse Oximetry 98 98 98 Oxygen Delivery Method Room Air Room Air Room Air 09/18/23 16:30 Temperature Pulse Rate 65 Respiratory Rate 18 Blood Pressure 143/67 H Pulse Oximetry 99 Oxygen Delivery Method Room Air MDM - Fall MDM Narrative Medical decision making narrative: 73-year-old female with past medical history hypertension, hypothyroidism, osteopenia, psoriasis, fibromyalgia presents to the ED status post a mechanical fall sustained just prior to arrival. Concern for fracture/dislocation versus musculoskeletal sprain/strain versus other. Will obtain x-rays. Will give Toradol for pain. Will reassess. CT head, CT neck, CT C-spine without acute findings. Elbow x-ray shows some mild effusion with slight proximal head cortical irregularity. Discussed findings with patient. Patient was fitted in a sling. Recommend supportive care with Tylenol, ibuprofen. Recommend follow-up with PCP as soon as possible. ED return precautions discussed with patient. Patient verbalized understanding. Medical records reviewed: Yes Discharge Plan Departure Patient Disposition: Home Clinical Impression: Elbow pain Qualifiers: Laterality: left Qualified Code(s): M25.522 - Pain in left elbow Instructions: How to Prevent Falls Activity Restrictions/Additional Instructions: You were evaluated in the ED today for elbow pain from a fall. Your imaging did not show any acute findings. Your symptoms are likely due to a musculoskeletal sprain/strain from the fall. You may take Tylenol, ibuprofen for pain. You may keep your arm in a sling for comfort while your elbow heals. Please follow-up with your PCP as soon as possible. Return to the ED if you have worsening symptoms, numbness, tingling, weakness. Prescriptions: No Action atenolol 50 mg tablet 50 mg PO DAILY Qty: 90 2RF levothyroxine [Synthroid] 75 mcg tablet 75 mcg PO DAILY Qty: 90 2RF azelastine 0.15 % (205.5 mcg) spray,non-aerosol 2 spray NASAL DAILY Qty: 30 2RF Rx Instructions: administer into each nostril lamotrigine 150 mg tablet 150 mg PO DAILY cholecalciferol (vitamin D3) 125 mcg (5,000 unit) capsule 125 mcg PO DAILY dextroamphetamine-amphetamine [Adderall] 15 mg tablet 15 mg PO DAILY venlafaxine 75 mg tablet extended release 24hr 75 mg PO DAILY trazodone 100 mg tablet 25 mg PO BEDTIME Referrals: Torrey Horowitz MD [Primary Care Provider] - Stand Alone Forms: Patient Portal/API
--- NOTE | 2023-09-18 14:45 | DI.CT.S_ITS ---
PROCEDURE: CT HEAD/BRAIN WO CON INDICATIONS: L sided head tenderness TECHNIQUE: Noncontrast 4.5 mm thick angled axial sections acquired from the foramen magnum to the vertex, with coronal and sagittal reformats. For radiation dose reduction, the following was used: automated exposure control, adjustment of mA and/or kV according to patient size. COMPARISON: [facility], CT, CT THORACIC SPINE WO CON, 09/18/2023, 15:33. [facility], CT, CT CERVICAL SPINE WO CON, 09/18/2023, 15:33. [facility], CT, CT HEAD/BRAIN WO CON, 08/15/2019, 21:30. FINDINGS: Image quality: Mild streak artifact can be seen through the skull base. CSF spaces: Basal cisterns are patent. No extra-axial fluid collections. The ventricles are symmetric in size and shape. Brain: No intracranial bleeds or masses. There is cerebral volume loss for age, with resultant ventricular and sulcal prominence. There are periventricular and deep white matter chronic small vessel ischemic changes. There is intracranial internal carotid artery atherosclerosis. Skull and face: In this patient with this given history, scrutiny is given to the left scalp. No significant abnormalities can be seen. Calvarium and visualized facial bones appear intact, without suspicious lesions. Sinuses: Visualized sinuses and mastoids are clear. IMPRESSION: No acute intracranial pathology. No abnormalities of the left scalp are identified. No displaced calvarial fracture can be seen. Dictated by: Darren Desai M.D. on 09/18/2023 at 14:52 Approved by: Darren Desai M.D. on 09/18/2023 at 14:53
--- NOTE | 2023-09-18 14:46 | DI.CT.S_ITS ---
PROCEDURE: CT CERVICAL SPINE WO CON INDICATIONS: fall TECHNIQUE: Noncontrast 3 mm thick sections acquired from the skull base to the T4 level. Sagittal and coronal reformats were then constructed. For radiation dose reduction, the following was used: automated exposure control, adjustment of mA and/or kV according to patient size. COMPARISON: [facility], CT, CT THORACIC SPINE WO CON, 09/18/2023, 15:33. [facility], CT, CT HEAD/BRAIN WO CON, 09/18/2023, 15:33. [facility], CT, CT CERVICAL SPINE WO CON, 08/15/2019, 22:22. FINDINGS: Image quality: This examination is somewhat limited by quantum mottle artifact. Bones: No fractures or dislocations. Visualized superior ribs are intact. Focal degenerative change is seen involving the C1-C2 interface anteriorly. There is at least moderate disc space narrowing seen at C5-C6 and C6-C7. Milder degenerative changes are seen elsewhere. Soft tissues: Prevertebral soft tissues are normal in thickness. No paravertebral hematomas. No apical pneumothoraces. IMPRESSION: No displaced fracture or traumatic subluxation. Cervical spine degenerative changes are seen, which are worst inferiorly. Dictated by: Darren Desai M.D. on 09/18/2023 at 14:53 Approved by: Darren Desai M.D. on 09/18/2023 at 14:54
--- NOTE | 2023-09-18 14:46 | DI.CT.S_ITS ---
PROCEDURE: CT THORACIC SPINE WO CON INDICATIONS: fall TECHNIQUE: Noncontrast 3 mm thick sections acquired through the region of interest in the thoracic spine. Sagittal and coronal reformats were then constructed. For radiation dose reduction, the following was used: automated exposure control. COMPARISON: [facility], CT, CT CHEST ABD PEL W CON, 03/29/2020, 9:58. [facility], CT, CT HEAD/BRAIN WO CON, 09/18/2023, 15:33. [facility], CT, CT CERVICAL SPINE WO CON, 09/18/2023, 15:33. FINDINGS: Image quality: Excellent. Bones: There is normal overall bony alignment. No acute vertebral body compression fractures. No suspicious sclerotic or lytic bony lesions. Central spinal canal is of normal overall caliber. Age-appropriate bony degenerative changes are seen. S-shaped scoliotic curvature is seen. Soft tissues: No paravertebral masses or hematomas. Visualized posteromedial lungs appear clear. Note is made of a water density cyst along the posterior aspect of the right liver dome, as on series 4, image 73. IMPRESSION: No acute thoracic spine fracture can be seen. Underlying degenerative changes are seen. Dictated by: Darren Desai M.D. on 09/18/2023 at 15:08 Approved by: Darren Desai M.D. on 09/18/2023 at 15:10
[2023-09-18] MEDS: KETOROLAC 30 MG/ML VIAL IM (14:59)
[2023-09-18 15:00] VITALS: BP 157/81; PULSE 68; RESP 20; TEMP 36.8; O2SAT 98
[2023-09-18 15:48] VITALS: BP 142/65; PULSE 65; RESP 18; TEMP 36.6; O2SAT 98
[2023-09-18 16:30] VITALS: BP 143/67; PULSE 65; RESP 18; O2SAT 99
== END 2023-09-18 17:13 | disposition home or self-care (01) ==
PROVIDERS: Emergency Provider Student in an Organized Health Care Education/Training Program; Family Provider Registered Nurse; PCP Internal Medicine
DX: S59.902A Unspecified injury of left elbow, initial encounter (principal); W18.30XA Fall on same level, unspecified, initial encounter
CPT/HCPCS: 70450; 72125; 72128; 73060; 73080; 73110; 96372; 99284; J1885

== ENCOUNTER 2023-09-19 08:59 | Emergency (ER) | payer OTHER, SELFPAY ==
[2023-09-19 09:00] VITALS: BP 177/74; PULSE 58; RESP 15; TEMP 36.8; O2SAT 96; BMI 27.2
--- NOTE | 2023-09-19 09:08 | ED_ITS ---
HPI - General Adult General Chief complaint: Extremity Injury, Upper Stated complaint: L arm fracture, returning pt per provider Time Seen by Provider: 09/19/23 09:07 History of Present Illness HPI narrative: 73-year-old female with history of osteopenia, hypertension, fibromyalgia retur ns per my request with left elbow pain in the setting of visit yesterday with x- ray abnormalities. She was placed in sling but continues to have pain. I requested she return for re-evaluation. I confirmed with patient that she slipped and fell a few days ago, landing on her left arm, with focal pain at her left elbow but no other new symptoms. No head or neck injuries. No loss of consciousness. No head trauma. No blood thinners. No neck or back or chest or abdominal or flank pain. She denies prior surgeries to her left upper extremity. She denies blood thinners. She is taken Tylenol at home but request something stronger for pain to help her sleep at night. No other new concerns. Related Data Home Medications Medication Instructions Recorded Confirmed cholecalciferol (vitamin D3) 125 125 mcg PO DAILY 04/30/20 01/27/23 mcg (5,000 unit) capsule lamotrigine 150 mg tablet 150 mg PO DAILY 04/30/20 01/27/23 trazodone 100 mg tablet 25 mg PO BEDTIME 02/14/22 01/27/23 dextroamphetamine-amphetamine 15 15 mg PO DAILY 01/27/23 01/27/23 mg tablet (Adderall) venlafaxine 75 mg tablet,extended 75 mg PO DAILY 01/27/23 01/27/23 release 24 hr Previous Rx's Medication Instructions Recorded azelastine 205.5 mcg (0.15 %) 2 spray intranasal DAILY #30 mL 03/12/20 nasal spray atenolol 50 mg tablet 50 mg PO DAILY #90 tabs 03/01/23 levothyroxine 75 mcg tablet 75 mcg PO DAILY #90 tabs 03/01/23 (Synthroid) oxycodone 5 mg capsule 5 mg PO Q8H PRN pain #6 caps 09/19/23 Allergies Allergy/AdvReac Type Severity Reaction Status Date / Time latex AdvReac Mild Verified 09/19/23 09:10 duloxetine [From CYMBALTA] AdvReac Unknown Anxiety Verified 09/19/23 09:10 Review of Systems Review of Systems Narrative: Constitutional: no fever, no chills Eyes: no visual disturbance, no discharge Ears, Nose, Mouth, Throat: no rhinorrhea, no sore throat Cardiovascular: no chest pain, no palpitations Respiratory: no cough, no shortness of breath Gastrointestinal: no abdominal pain, no vomiting, no diarrhea Genitourinary: no dysuria, no hematuria Musculoskeletal: no back pain, no neck stiffness Skin: no rash, no wound Neurological: no focal weakness, no focal numbness Patient History Medical History H/O adenomatous polyp of colon COVID-19 Arthritis PTSD (post-traumatic stress disorder) Vision disorder Psoriasis (~1979) Sleep apnea Allergies Depression Anxiety Osteopenia Lumbar disc disease Foot pain Fibromyalgia Chronic back pain (~1963) Cervical spine disease Ankle pain (~2016) Recurrent sinusitis History of recurrent ear infection Hypothyroidism (~2000) Hypertension (~2017) Surgical History Anesthesia History of breast surgery (~1974) Family History Father History of heart disease Hypertension Diabetes mellitus Mother History of heart disease Mental health problem Colon cancer Brother Atrial fibrillation Grandfather Stroke Social History marital status: unknown household members: none occupational status: previously employed Smoking Status: Former smoker Tobacco: How many years used: 15 alcohol intake: current substance use type: does not use Smoking Status: Former smoker alcohol intake frequency: a few times a month Substance Use Type: does not use Exam Narrative Exam Narrative: Const: no acute distress, non toxic appearing; calm, conversant, pleasant Head: no lacerations or contusions. No maxillary tenderness or midface instability. No nasal septal hematoma. No mendez sign or raccoon eyes. No evidence of intraoral trauma. Mucous membranes moist. Eyes: PERRLA, EOMI Neck: supple, non-tender Resp: no respiratory distress, clear to auscultation bilaterally Card: regular rate and rhythm, no murmurs; no chest wall or clavicular tenderness Abd: non tender diffusely, no rigidity or rebound or guarding Back: no T or L spine tenderness, no CVA tenderness bilaterally Extrem: no pelvic tenderness or instability. There is focal tenderness and bruising at proximal left radius, with mild swelling at elbow; there is also mild ulnar tenderness proximally; no olecranon tenderness. No shoulder, humerus, forearm, wrist, snuffbox tenderness. No wounds. She is neurovascularly intact, with intact strength and sensation at median, ulnar, radial nerves. No other visual or palpable evidence of trauma to extremities; extremities with 2+ distal pulses, some limited range of motion at left elbow but still some intact supination/pronation and flexion/extension; otherwise normal range of motion, intact strength and sensation, no deformities, soft compartments. No snuffbox tenderness bilaterally. Neuro: ANOx4, learning design specialist grossly intact, grossly intact sensation and strength all extremities Skin: no other lacerations; no rash, warm and dry Initial Vital Signs Initial Vital Signs: Vital Signs Temperature 98.3 F 09/19/23 09:00 Pulse Rate 58 L 09/19/23 09:00 Respiratory Rate 15 09/19/23 09:00 Blood Pressure 177/74 H 09/19/23 09:00 Pulse Oximetry 96 09/19/23 09:00 Oxygen Delivery Method Room Air 09/19/23 09:00 Course Course Course Narrative: This patient returns for my request after ground level mechanical fall with what I suspect is an occult radial head fracture, in the setting of osteopenia and prior x-ray findings. Her exam is consistent with this. She is closed, neurovascularly intact. I am repeating x-ray and giving sugar-tong splint with anticipation of orthopedic follow up, with short course of narcotics for home use. She otherwise appears well on primary and secondary surveys and has no other new concerns. Radiology review of imaging below, which I agree with on my independent review: XR: FINDINGS: Bones: No fractures or dislocations. No suspicious bony lesions. Soft tissues: No elbow joint effusion. No suspicious soft tissue calcifications. IMPRESSION: No acute fracture. No osseous lesion. If symptoms and/or clinical suspicion for pathology persist, further assessment with repeat, or advanced imaging (e.g., CT, MRI, or bone scan) may be helpful for further assessment. Dictated by: Liliana Simmons M.D. on 09/19/2023 at 9:35 Note BP elevated in setting of pain, without clinical evidence of hypertensive emergency; this appears suitable for follow up outpatient. I remained concerned for potential occult fracture, particularly in setting of known osteopenia. Sugar tongue splint applied; pt remains NVI after this wtih no other new concerns. Orthopedic referral sent. Repeat exam and vital signs reassuring. Questions answered. Plan reviewed. Patient discharged in stable condition. Repeat exam and vital signs reassuring. Questions answered. Plan reviewed. Patient discharged in stable condition. Orders Ordered: ED Orders 09/19/23 09:11 XR elbow LT min 3V Stat Vital Signs Vital signs: Vital Signs - 8 hr 09/19/23 09:00 09/19/23 09:56 09/19/23 09:57 Temperature 98.3 F Pulse Rate 58 L 66 Pulse Rate [Left Radial] 66 Respiratory Rate 15 18 Blood Pressure 177/74 H Pulse Oximetry 96 97 Oxygen Delivery Method Room Air Room Air Discharge Plan Departure Patient Disposition: Home Clinical Impression: Elbow injury Instructions: DI for Elbow Fracture Activity Restrictions/Additional Instructions: It was a pleasure taking care of you today. It is important to fully read and understand the below. Please ask us if you have any questions. We think the most likely cause of your pain may be an occult fracture that we can not quite see it. I am referring to Orthopedics, and we placed you in a splint. Please also contact your primary doctor today. Please keep this raised and dry. Take Tylenol 1st and be very careful with narcotic medications. Please be reassessed by a doctor within 3-5 days. You have been given or prescribed any narcotics or other sedating medications. Please take only what you must, DO NOT combine with alcohol or other sedating medications, DO NOT drive while taking, do not allow anyone else to take these medications, and please carefully dispose of what you do not use. No tests or assessments are perfect, and your condition could record changer assembler time. If your symptoms change or worsen, it is very important you immediately seek medical care. If you have any new or worsening pain, swelling, redness, rash, fever, numbness, weakness, bleeding, difficulty using your body, or anything else that concerns you, please immediately seek medical care. If you have been prescribed any medications: please read the drug package inserts on how to properly use the medication and any potential side effects. If you had labs (blood tests) or imaging (CT scan or x-rays) done during your visit: please follow up on the results of these with your primary care doctor, as discussed. In addition, please know the results we received today may be prel iminary. Our usual practice is to follow up on tests within a few days of a patient's discharge from the Emergency Department and notify you of any changes. These may lead to changes to your treatment plan. However, the best way to obtain and interpret these test results is through your Primary Care Provider. If you need to update your contact information, please stop by the front tender and alert the Registration personnel before you leave the Emergency Department. Thank you for the opportunity to participate in your healthcare. We are always here and happy to see you in the future. Prescriptions: New oxycodone 5 mg capsule 5 mg PO Q8H PRN (Reason: pain) Qty: 6 0RF No Action atenolol 50 mg tablet 50 mg PO DAILY Qty: 90 2RF levothyroxine [Synthroid] 75 mcg tablet 75 mcg PO DAILY Qty: 90 2RF azelastine 0.15 % (205.5 mcg) spray,non-aerosol 2 spray NASAL DAILY Qty: 30 2RF Rx Instructions: administer into each nostril lamotrigine 150 mg tablet 150 mg PO DAILY cholecalciferol (vitamin D3) 125 mcg (5,000 unit) capsule 125 mcg PO DAILY dextroamphetamine-amphetamine [Adderall] 15 mg tablet 15 mg PO DAILY venlafaxine 75 mg tablet extended release 24hr 75 mg PO DAILY trazodone 100 mg tablet 25 mg PO BEDTIME Referrals: Ruth Mercado MD [Physician] - (suspected occult radial head fracture or similar) Torrey Horowitz MD [Primary Care Provider] - Stand Alone Forms: Patient Portal/API
--- NOTE | 2023-09-19 09:11 | DI.RAD.S_ITS ---
PROCEDURE: XR ELBOW LT MIN 3V INDICATIONS: fall TECHNIQUE: 3 views of the elbow were acquired. COMPARISON: [facility], CR, XR ELBOW LT MIN 3V, 09/18/2023, 13:55. FINDINGS: Bones: No fractures or dislocations. No suspicious bony lesions. Soft tissues: No elbow joint effusion. No suspicious soft tissue calcifications. IMPRESSION: No acute fracture. No osseous lesion. If symptoms and/or clinical suspicion for pathology persist, further assessment with repeat, or advanced imaging (e.g., CT, MRI, or bone scan) may be helpful for further assessment. Dictated by: Liliana Simmons M.D. on 09/19/2023 at 9:35 Approved by: Liliana Simmons M.D. on 09/19/2023 at 9:36
[2023-09-19 09:56] VITALS: PULSE 66
[2023-09-19 09:57] VITALS: PULSE 66; RESP 18; O2SAT 97
== END 2023-09-19 10:15 | disposition home or self-care (01) ==
PROVIDERS: Emergency Provider Emergency Medicine; Family Provider Registered Nurse; PCP Internal Medicine
DX: S59.902A Unspecified injury of left elbow, initial encounter (principal); W18.30XA Fall on same level, unspecified, initial encounter; M79.602 Pain in left arm
CPT/HCPCS: 29125; 73080; 99282

== ENCOUNTER 2023-09-19 18:41 | Emergency (ER) | payer OTHER, SELFPAY ==
[2023-09-19 19:03] VITALS: BP 185/85; PULSE 71; RESP 18; TEMP 37.2; O2SAT 97; BMI 27.2
--- NOTE | 2023-09-19 20:11 | PC.NURSE ---
Pt had splint in place from previous visit. pt had been moving arm at elbow causing splint to dig into upper arm. splint replaced and instructed not to straighten arm. Pt stated understanding.
== END 2023-09-19 20:15 | disposition left against medical advice (07) ==
PROVIDERS: Emergency Provider Emergency Medicine; Family Provider Registered Nurse; PCP Internal Medicine
DX: M79.602 Pain in left arm (principal)
CPT/HCPCS: 29125

== ENCOUNTER → 2023-10-17 10:24 | Outpatient (CLI) | payer OTHER, SELFPAY ==
[2023-10-17 11:09] LABS: Appearance Urine UA CLEAR; Bilirubin Urine UA 1+ (NEGATIVE); Color Urine UA YELLOW; Glucose Urine UA NEGATIVE (Negative); Ketones Urine UA TRACE (NEGATIVE); Leukocyte Esterase Urine UA TRACE (NEGATIVE); Nitrite Urine UA NEGATIVE (Negative); Occult Blood Urine UA NEGATIVE (Negative); Protein Urine UA NEGATIVE (Negative); Specific Gravity Urine UA >=1.030 (1.000-1.035); Urobilinogen Urine UA 0.2 E.U./dL (0.2)
[2023-10-17 12:05] LABS: Bacteria Urine None Seen; Culture Indicated Urine Cult Not Indicated; RBC Urine None Seen (0-5/HPF); Squamous Epithelial Cell Urine 0-1 /HPF (0-5/HPF); Urine Volume 10mL (spun); WBC Urine 1-5/HPF (0-5/HPF)
[2023-10-17 12:08] LABS: Ictotest Urine Negative (Negative)
== END ==
PROVIDERS: Family Provider Registered Nurse; PCP Internal Medicine; Referring Provider Internal Medicine; Visit Provider Internal Medicine
DX: R32 Unspecified urinary incontinence (principal)
CPT/HCPCS: 81001

== ENCOUNTER → 2024-02-29 08:31 | Outpatient (CLI) | payer OTHER, SELFPAY ==
--- NOTE | 2024-02-29 08:33 | DI.MG.S_ITS ---
BILATERAL DIGITAL SCREENING MAMMOGRAM 3D/2D WITH CAD: 02/29/2024 CLINICAL: Routine screening. Family history of breast cancer. Comparison is made to exams dated: 01/18/2023 mammogram, 12/16/2019 mammogram - [facility], and 05/02/2016 mammogram - [facility]. Both breasts are heterogeneously dense, which may obscure small masses (category c / 51-75% glandular tissue). Current study was also evaluated with a Computer Aided Detection (CAD) system. No significant masses, calcifications, or other findings are seen in either breast. There has been no significant interval change. IMPRESSION: NEGATIVE There is no mammographic evidence of malignancy. A 1 year screening mammogram is recommended. Based on the Tyrer Cuzick model (a risk assessment model) the patient's lifetime risk is 3.8% and her 10 year risk is 3.8%. According to the ACR, ACS, and NCCN guidelines, an annual breast MRI exam along with mammogram is recommended if the patient's lifetime risk is 20% or greater. This exam was interpreted at Station ID: [id number]. NOTE: For mammograms, a report in lay terms will be sent to the patient. Approximately 15% of breast malignancies will not be visualized mammographically. In the management of a palpable breast mass, a negative mammogram must not discourage biopsy of a clinically suspicious lesion. Electronically Signed By: Hernandez garcia/guzman:02/29/2024 11:03:58 letter sent: Normal Exam ACR BI-RADS Category 1: Negative 3341F
== END ==
LOC: MAMMO 08:32
PROVIDERS: Family Provider Registered Nurse; PCP Internal Medicine; Referring Provider Internal Medicine; Visit Provider Internal Medicine
DX: Z12.31 Encounter for screening mammogram for malignant neoplasm of breast (principal); Z80.3 Family history of malignant neoplasm of breast; R92.333 Mammographic heterogeneous density, bilateral breasts
CPT/HCPCS: 77063; 77067

== ENCOUNTER 2025-01-08 07:31 | Day surgery (SDC) | payer OTHER, SELFPAY ==
[2025-01-08 08:09] VITALS: BP 122/70; PULSE 58; RESP 16; TEMP 37; O2SAT 98
[2025-01-08] MEDS: LACTATED RINGERS 1,000 ML 42 ML IV (08:23)
--- NOTE | 2025-01-08 08:52 | PM.HP.IH.1 ---
History of Present Illness History of Present Illness Date Patient Seen: 01/08/25 Chief complaint: Screening Colonoscopy Narrative: Personal history of colon polyps and family history of colon cancer in her mother. Last colonoscopy 5 years ago [facility] Medical History H/O adenomatous polyp of colon COVID-19 Arthritis PTSD (post-traumatic stress disorder) Vision disorder Psoriasis (~1979) Sleep apnea Allergies Depression Anxiety Osteopenia Lumbar disc disease Foot pain Fibromyalgia Chronic back pain (~1963) Cervical spine disease Ankle pain (~2016) Recurrent sinusitis History of recurrent ear infection Hypothyroidism (~2000) Hypertension (~2017) Surgical History Anesthesia History of breast surgery (~1974) Family History Father History of heart disease Hypertension Diabetes mellitus Mother History of heart disease Mental health problem Colon cancer Brother Atrial fibrillation Grandfather Stroke Social History marital status: unknown household members: none occupational status: previously employed Smoking Status: Former smoker Tobacco: How many years used: 15 alcohol intake: current substance use type: does not use Meds Home Medications and Allergies Home Medications ?Medication ?Instructions ?Recorded ?Confirmed ?Type azelastine 205.5 mcg (0.15 %) 2 spray intranasal DAILY #30 mL 03/12/20 10/17/23 Rx nasal spray cholecalciferol (vitamin D3) 125 125 mcg PO DAILY 04/30/20 10/17/23 History mcg (5,000 unit) capsule lamotrigine 150 mg tablet 150 mg PO DAILY 04/30/20 10/17/23 History trazodone 100 mg tablet 25 mg PO BEDTIME 02/14/22 10/17/23 History dextroamphetamine-amphetamine 15 15 mg PO DAILY 01/27/23 01/08/25 History mg tablet (Adderall) venlafaxine 75 mg tablet,extended 75 mg PO DAILY 01/27/23 10/17/23 History release 24 hr oxybutynin chloride 5 mg 5 mg PO DAILY #30 tabs 10/17/23 Rx tablet,extended release 24 hr atenolol 50 mg tablet 50 mg PO DAILY #90 tabs 01/17/24 01/08/25 Rx levothyroxine 75 mcg tablet 75 mcg PO DAILY #90 tabs 01/17/24 01/08/25 Rx (Synthroid) Allergies Allergy/AdvReac Type Severity Reaction Status Date / Time latex AdvReac Mild Verified 01/08/25 08:01 duloxetine (From CYMBALTA) AdvReac Unknown Anxiety Verified 01/08/25 08:01 Exam Vital Signs (past 8 hours): - 01/08/25 08:09 Temperature 98.6 F Pulse Rate 58 L Respiratory Rate 16 Blood Pressure 122/70 Pulse Oximetry 98 Oxygen Delivery Method Room Air Oxygen Delivery Method Room Air Narrative Exam Narrative: Oropharynx free of lesions Assessment & Plan Assessment & Plan narrative: Personal history of colon polyps and family history of colon cancer need for follow-up colonoscopy. Risks, benefits, alternatives have been explained. Time-Based Coding :: [TOTAL MINUTES] spent with patient and on the chart (including review of chart, obtaining history, exam, reviewing outside data, placing orders, documenting exam and treatment plan, and counseling patient) on [DATE]. PROFEE Claims Attorney Document charge(s): No
--- NOTE | 2025-01-08 08:54 | PM.OP.COLON ---
Operative Date/Time/Diagnoses Date of procedure: 01/08/25 Time of procedure: 11:58 Pre-op diagnosis: See indication and findings Post-op diagnosis: same Procedure & Clinicians Study performed: Colonoscopy Same procedure(s) as scheduled: Yes Indications: Personal history of colon polyps and family history of colon cancer Surgeon: Ronal Gavin Procedure Notes Procedure in detail: After informed consent was obtained the patient was placed in left lateral decubitus position. The video colonoscope was introduced the rectum slowly advanced cecum. Preparation was good. On slow withdrawal mucosa was carefully examined. The scope was removed. The patient tolerated procedure well. Blood loss none Complications none Sedation mac Findings 1. Scattered sigmoid diverticulosis 2. Otherwise negative colonoscopy to cecum Given family history of colon cancer would suggest 1 further colonoscopy at age 79.
[2025-01-08 12:02] VITALS: BP 107/69; PULSE 59; RESP 12; TEMP 37.2; O2SAT 95
== END 2025-01-08 12:26 | disposition home or self-care (01) ==
PROVIDERS: Family Provider Registered Nurse; PCP Registered Nurse; Referring Provider Internal Medicine Gastroenterology; Visit Provider Internal Medicine Gastroenterology
PROC: 0DJD8ZZ Inspection of Lower Intestinal Tract, Via Natural or Artificial Opening Endoscopic (ICD-10-PCS; CPT 45378; principal; 2025-01-08 09:00)
DX: Z12.11 Encounter for screening for malignant neoplasm of colon (principal); Z86.0100 Personal history of colon polyps, unspecified; Z80.0 Family history of malignant neoplasm of digestive organs; Z87.891 Personal history of nicotine dependence; K57.30 Diverticulosis of large intestine without perforation or abscess without bleeding
CPT/HCPCS: G0105; J2704